=== PATIENT | female | born 1940 | race African-American/Black ===

== ENCOUNTER 2017-03-11 20:54 | Inpatient (IN) | payer OTHER ==
[~2017-03-11] VITALS: Ht 162.6 cm; Wt 93.6 kg
--- NOTE | ~2017-03-11 | HC ---
[facility] [place] [address] CONSULTATION Name: SHRAVANEULALIA Basim Room #: 210-[facility] IN ..#: [id number] Admission: 03/12/17 Attend Phys: Joel Moreno MD Discharge: Date of : 42 Report #: [id number] THIS REPORT FOR: //name// CC: Joel Moreno DATE OF SERVICE: 03/22/2017 HISTORY OF PRESENT ILLNESS: The patient is a 76-year-old -[place] female originally admitted with abdominal pain, was noted to have an obstructing mid transverse colonic mass and underwent colectomy on 03/18/2017. Course has been complicated by acute renal insufficiency, which has improved. Nephrology is involved. Weight is increased and she is on Lasix. She has generalized weakness and debilitation and we are seeing her in rehabilitation medicine consultation. The colonoscopy and pathology is consistent with invasive adenocarcinoma with the surgical pathology currently pending. PAST MEDICAL HISTORY: Includes hypertension, hyperlipidemia, and degenerative arthritis. ALLERGIES: PENICILLIN. MEDICATIONS: Please see the full medication listing. FAMILY HISTORY: Noncontributory. SOCIAL HISTORY: She lives in a house with her granddaughter, 2 steps in. No assistive device premorbidly. Daughter is a nurse. REVIEW OF SYSTEMS: Some abdominal discomfort as expected, but no chest pain or shortness of breath. She does have pain involving the right foot and she indicates that she has a history of gout. PHYSICAL EXAMINATION: GENERAL: A pleasant 76-year-old -[place] female, in no obvious distress. She is alert, pleasant, and overweight. VITAL SIGNS: Last recorded temperature 98.3, pulse 80, respirations 20, and blood pressure 179/86. NEUROLOGIC: Facies are symmetric. Functional range of motion of both upper extremities with strength grade 4-/5. DTRs are trace to 1 in lower extremities. She has the abdominal binder in place. She has the lower abdominal drain. Lower extremity, she favors moving the right lower extremity with pain involving the right foot and large toe. Proximally, her strength is probably a grade 4-/5 distally. Again, it somewhat difficult with the discomfort. Left lower extremity, functional range of motion, strength is a grade 4- Tone is intact. Bed mobility was max assist with sit to stand, mod assist. [facility] [address] [place] [address] CONSULTATION Name: EULALIA CHENEY Room #: [facility] IN .R.#: [id number] Admission: 03/12/17 Attend Phys: Joel Moreno MD Discharge: Date of : 42 Report #: [id number] ASSESSMENT: A 76-year-old -[place] female with the following problem list: 1. Obstructing colonic mass, now status post colectomy on 03/18/2017. Colonoscopy and pathology is consistent with invasive adenocarcinoma. 2. Acute renal insufficiency that has improved. 3. Right foot discomfort. The patient indicates she has a history of gout. Note that she has been started on allopurinol. 4. Diabetes mellitus. 5. Hypertension. 6. Elevated lipids. 7. Degenerative arthritis. 8. Exogenous obesity. PLAN: Insurance will be checked regarding rehab therapy options. She certainly would be a candidate for a short acute in-hospital inpatient rehabilitation stay to further improve her strength, functional mobility, and ADLs as well as to allow her current physician consultants to continue to follow with her while she is on the rehab javier. Insurance will need to be checked and we will also have to check regarding bed availability issues. We will be glad to follow along with you. <ELECTRONICALLY SIGNED> By: Joel Sage MD 03/28/17 1226 1529 0042 Joel Sage MD /PMT
--- NOTE | ~2017-03-11 | HC ---
[facility] [place] [address] CONSULTATION Name: SHRAVANEULALIA Room #: 210-[facility] IN M.R.#: [id number] Admission: 03/12/17 Attend Phys: Joel Moreno MD Discharge: Date of : 42 Report #: [id number] THIS REPORT FOR: //name// CC: Joel Moreno REASON FOR CONSULTATION: Elevated creatinine. HISTORY OF PRESENT ILLNESS: A 76-year-old who was admitted earlier this month with intermittent abdominal pain. This had been running with her for a few months and she reported to some weight loss. She is not known to have any previous renal problems. She presented for further evaluation and management. CT of the abdomen showed an ascending and transverse colon, fluid and gas distention with what seems to be a hepatic flexure mass. That was evident on a colonoscopy that was done by the GI team, which revealed a circumferential colon, strictures at the hepatic flexure as well as well as sigmoid diverticulosis and rectal polyps. The patient was operated upon. She had a normal kidney function before her surgical intervention. She ran into some issues with hypotension postoperatively and her creatinine has jumped to 2.2 from a baseline of around 1.0 on presentation. She is not aware of any previous kidney problems prior to this. PAST MEDICAL HISTORY: 1. Diabetes mellitus. 2. Hypertension. 3. Hyperlipidemia. 4. Gout. PAST SURGICAL HISTORY: Bilateral tubal ligation, sinus surgery and carpal tunnel. MEDICATIONS: Hydrocodone, promethazine, ciprofloxacin, metronidazole, potassium. Listed in her outpatient medication is metformin and losartan. ALLERGIES: PENICILLIN. FAMILY HISTORY: The patient's paternal grandfather had stomach cancer. SOCIAL HISTORY: No drug or alcohol abuse. REVIEW OF SYSTEMS: GENERAL: Weight loss. PULMONARY: No cough or hemoptysis. CARDIOVASCULAR: No chest pain or palpitation. GASTROINTESTINAL: As per the history of present illness. GENITOURINARY: No frequency, no urgency. MUSCULOSKELETAL: No myalgias, no arthralgias. NEUROLOGICAL: No headache, no numbness. [facility] [address] [place] [address] CONSULTATION Name: EULALIA CHENEY Room #: [address] [place] [address]#: [id number] Admission: 03/12/17 Attend Phys: Joel Moreno MD Discharge: Date of : 42 Report #: [id number] PHYSICAL EXAMINATION: GENERAL: She is alert, oriented. NG tube in place. VITAL SIGNS: Blood pressure is 106/53, respiratory rate is 19, temperature 37.1. HEAD AND NECK: No jugular venous distention, no bruit, no thyromegaly. CHEST: Clear to auscultation bilaterally. CARDIOVASCULAR: Regular with no rub detected. ABDOMEN: Soft, nontender with no hepatosplenomegaly. LOWER EXTREMITIES: No edema. LABORATORY VALUES: Reviewed. Most recent creatinine is actually down to 1.5, potassium is 3.3. IMAGING: Chest x-ray reviewed. There is no evidence of pulmonary edema. ASSESSMENT, IMPRESSION AND PLAN: 1. Acute kidney injury. 2. Hypovolemia. 3. Status post colonic resection with hepatic mass, pending pathology. 4. Hypertension. 5. Diabetes mellitus. 6. Hypokalemia. 7. Acute kidney injury is well explained by her hypovolemia post-surgical intervention. 8. As for now, we will continue with the IV fluid. 9. Strict input and output. 10. Replace potassium. 11. Expect her kidney function to fully recover. 12. Routine antibiotics. 13. Replace electrolytes. 14. Pending pathology. <ELECTRONICALLY SIGNED> By: Geovanny Tyson MD 03/21/17 0832 2 51 Geovanny Tyson MD /nt
--- NOTE | ~2017-03-11 | S ---
[facility] [place] [address] SURGICAL PATH RPT PROCEDURE Name: BESSY ADAMS Room #: 210-P ADM IN M.R.#: [id number] Admission: 03/12/17 Date of : 44 Discharge: Report #: [id number] Path Case #: [id number] PATHOLOGY REPORT COLLECTION DATE: 03/15/2017 RECEIVED DATE: 03/15/2017 SUBMITTING PHYS: Dr. Tobni Restrepo OTHER PHYS: Dr. Joel Moreno SPECIMEN(S) RECEIVED: A.Antrum B.Distal esophagus C.Right colon stricture D.Rectal polyp * * * * * * * * * * * * FINAL DIAGNOSIS: A. "Antrum", biopsy: - Gastric antral type mucosa with mild reactive changes and mild chronic inflammation. - Negative H. pylori immunohistochemical stain (block A1); control reacted appropriately. B. "Distal esophagus", biopsy: - Esophageal squamous mucosa and gastric cardiac type mucosa with reactive changes and acute and chronic inflammation; no intestinal metaplasia or dysplasia seen. C. "Right colon stricture", biopsy: - INVASIVE ADENOCARCINOMA, MODERATELY DIFFERENTIATED, WITH BACKGROUND TUBULAR ADENOMA WITH HIGH-GRADE DYSPLASIA AND ACUTE AND CHRONIC INFLAMMATION, ULCERATION AND GRANULATION TISSUE. D. "Rectal polyp", biopsy: - Hyperplastic polyp with underlying submucosal leiomyoma (see comment). COMMENT: Properly controlled immunohistochemical stains are performed on specimen D. Block D1 SMA - Spindled cells reactive S100 - Spindled cells nonreactive CD117 - Spindled cells nonreactive CD34 - Spindled cells nonreactive Within specimen C, deeper sections are performed. The case is co-reviewed with Dr. Lacie Meeks. Due to the small focus of invasive tumor, MSI testing will be performed on the colon resection ([id number]). (CLW:kim; 03/17/2017) [address] [address] SURGICAL PATH RPT PROCEDURE Name: BESSY ADAMS Room #: 210-P [facility] IN M.R.#: [id number] Admission: 03/12/17 Date of : 42 Discharge: Report #: [id number] Path Case #: [id number] PATHOLOGIST: Sophia Jimenez M.D. REPORT ELECTRONICALLY SIGNED BY: Sophia Jimenez M.D. DATE/TIME: 03/17/2017 21:04 * * * * * * * * * * * * GROSS PATHOLOGY: A. Received in formalin labeled "Bessy Adams, BX antrum, rule out H. pylori," is a segment of tejeda soft tissue measuring 0.5 cm in maximum dimension. The specimen is submitted entirely in cassette A1. B. Received in formalin labeled "Bessy Adams BX of distal esophagus, rule out Baptiste's," are 4 segments of tejeda soft tissue measuring 1.6 x 0.8 x 0.2 cm in aggregate dimensions and ranging from 0.3 to 0.6 cm in maximum dimension. The specimen is submitted entirely in cassette B1. C. Received in formalin labeled "Bessy Adams BX of right colon stricture," are 7 segments of tejeda soft tissue measuring 1.5 x 1.8 x 0.2 cm in aggregate dimensions and ranging from 0.2 to 0.4 cm in maximum dimension. The specimen is submitted entirely in cassette C1. D. Received in formalin labeled "Bessy Adams, polyp at rectum," is a 0.8 x 0.5 x 0.5 cm polypoid piece of tejeda soft tissue. The margin is inked and the tissue is sectioned perpendicular to the margin and submitted in its entirety in cassette D1. (TSD; 03/15/2017) CLINICAL HISTORY: Pre-OP DX: Dysphagia, abdominal pain Post-OP DX: Hiatal hernia, esophagitis, gastritis, dysphagia, hepatic flexure mass INITIAL CPT CODE(S): A; 39295, 25810 B; 14814 C; 17372 D; 82852, 83017, 62458, 85668, 91849 Professional services performed by [facility] at [facility] [address] [facility], [place] [address] Technical services performed by [facility] at [address] [place] [address], [address] [address]. [facility] [address] [place] [address] SURGICAL PATH RPT PROCEDURE Name: BESSY ADAMS Room #: 210-P [facility] IN M.R.#: [id number] Admission: 03/12/17 Date of : 42 Discharge: Report #: [id number] Path Case #: [id number] [place] [address] PHONE: [phone] DIRECTOR: Terence Bansal M.D. * * * END OF REPORT * * *
--- NOTE | ~2017-03-11 | O ---
[facility] [place] [address] OPERATIVE REPORT Name: SHRAVANEULALIA Room #: 210-P [facility] IN M.R.#: [id number] Admission: 03/12/17 Attend Phys: Joel Moreno MD Discharge: Date of : 42 Report #: [id number] THIS REPORT FOR: //name// CC: Srinivasa Restrepo MD SURGEON: Srinivasa White M.D. INSPECTOR ASSEMBLY: Siva Soriano D.O. PREOPERATIVE DIAGNOSES: 1. Obstructing hepatic flexure mass. 2. Diabetes mellitus. 3. Hypertension. 4. Arthritis. 5. Gout. POSTOPERATIVE DIAGNOSES: 1. Obstructing mid transverse colon mass. 2. Diabetes mellitus. 3. Hypertension. 4. Arthritis. 5. Gout. PROCEDURE: 1. Laparoscopic converted to open transverse colectomy with thaf-hr-gtxp stapled anastomosis. 2. Mobilization of the hepatic flexure. 3. Placement of topical negative pressure dressing (CRISTOPHER). ANESTHESIA: General endotracheal anesthesia and local anesthetic. ESTIMATED BLOOD LOSS: 50 mL. SPECIMEN: Peritoneal fluid, transverse colon, anastomosis. COMPLICATIONS: None appreciated. INDICATIONS FOR PROCEDURE: This is a 76-year-old female patient with a 1-year history of intermittent abdominal pain associated with constipation. Over the past few months, the patient has noticed a 15-20 pound weight loss unintentionally. Her pain has substantially increased over the past 2 weeks. She was seen in the [facility] where she underwent CT of the abdomen and pelvis showing ascending and transverse colon fluid and gas distention with pericolonic fat stranding and wall thickening. Her maximal colon diameter was 7 cm with a 6 mm thick wall. This was felt to represent [facility] [address] [place] [address] OPERATIVE REPORT Name: EULALIA CHENEY Room #: 210-P [facility] IN ..#: [id number] Admission: 03/12/17 Attend Phys: Joel Moreno MD Discharge: Date of : 42 Report #: [id number] colitis. Her white blood cell count was mildly elevated at the time of her admission. The patient reports never having had a colonoscopy in the past (records show no colonoscopy within the past 10 years). GI performed an upper and lower endoscopy. She was found to have a circumferential stricture felt to be located at the hepatic flexure as well as sigmoid diverticulosis. The strictured area was highly suspicious for malignancy. Due to the patient's symptomatology, resection is indicated. OPERATIVE FINDINGS: Upon entrance into the abdominal cavity laparoscopically, the patient's small bowel was significantly dilated, as well as her transverse colon. Omentum was adherent both in the right lower quadrant and left lower quadrant and after taking down these adhesions and appropriately positioning the patient, I was unable to identify the tattooed area. This was mostly due to the distended bowel that made the laparoscopic approach quite difficult. Decision was made to convert to an open procedure. After opening the patient, I was able to palpate a mass in the mid transverse colon. The tattoo was visible in this area. There was a somewhat desmoplastic reaction with omentum tightly adherent to the area. There was no evidence for carcinomatosis otherwise with no omental caking and there were no palpable liver masses. The mesentery was also palpated for gross lymphadenopathy and this was not appreciated. I resected colon that involved the middle colic and left colic arterial distribution. After creating the stapled bizx-xl-utfs functional end-to-end anastomosis with a blue load 75 mm YARIEL stapler, the anastomosis was without tension. This required mobilization of the hepatic flexure prior to performing the anastomosis. The anastomosis was palpably patent after its creation. No other significant intra-abdominal pathology was seen. At the conclusion of the operation, the sponge, needle, and instrument counts were correct. DESCRIPTION OF PROCEDURE IN DETAIL: After the risks, benefits and expectations, the operation were discussed in detail with the patient and her family, informed consent was obtained. The patient was identified in the preoperative holding area. She was given IV antibiotics as documented in the chart in line with SCIP metrics. The patient was then taken to the operating room and she was placed in the supine position. SCDs were placed on the patient's bilateral lower extremities and pneumatic compression was initiated. The patient was then given IV sedation and she was intubated without incident. A time-out was performed to identify the correct patient and procedure after the patient's abdomen was prepped and draped in standard sterile fashion. Local anesthetic was infiltrated into the skin and subcutaneous tissue supraumbilically where a vertical incision was made. Dissection was carried down to the fascia. A longitudinal fascial incision was made. A 5 mm Visiport was then placed intraperitoneally with a 0-degree angled laparoscope. Pneumoperitoneum was achieved with insufflation of carbon dioxide to 15 mmHg. A 30-degree angled laparoscope was then inserted. The patient was placed in the [address] [address] OPERATIVE REPORT Name: EULALIA CHENEY Room #: 210-P ADM IN M.R.#: [id number] Admission: 03/12/17 Attend Phys: Joel Moreno MD Discharge: Date of : 42 Report #: [id number] Trendelenburg position. A suprapubic 5-mm port was placed through a vertical incision after local anesthetic was infiltrated into the skin and subcutaneous tissue and an appropriately sized incision was made. An additional 5-mm port was placed in the left lower quadrant of the abdomen using a similar technique through a small transverse incision. The patient was then rotated to her left, with the right side up. The distended bowel was retracted away and visualization was quite difficult. Omentum was adherent in the right lower quadrant. This was carefully taken down with sharp dissection and judicious use of the ultrasonic dissector. The omentum had been adherent to the cecum. The appendix appeared normal. The omentum was adherent in the right upper quadrant near the hepatic flexure and this was initially felt to potentially represent the area of involvement; however, the tattoo was not visible. The transverse colon was distended and hyperemic. I searched for the tattooed area in the mid transverse colon; however, this was quite difficult once again due to the distended bowel that made visualization difficult. Omentum in the left lower quadrant of the abdomen was dissected free in a similar fashion in order to lift the omentum. Visualization of the tattooed area was still not possible. Decision was made to perform the operation through a midline laparotomy. The ports were removed. A sharp #10 blade scalpel was then used to make a vertical midline incision from the xiphoid inferiorly to the umbilicus. Dissection was carried through the subcutaneous tissue down to the fascia. The fascia and peritoneal lining were then opened along the length of the incision. It was evident that a longer incision would be necessary to perform the operation. The incision was carried around the umbilicus on the right. The fascia and peritoneum were opened along the length of the incision. The tumor was palpable in the mid transverse colon. The peritoneal fluid was suctioned and collected with a Lukens trap. There was no evidence for carcinomatosis, liver involvement or omental caking. The lesser sac was then opened and the dissection was carried laterally on both sides. The colonic mesentery was palpated for the middle colic artery and left colic distribution. Decision was made to perform a transverse colon resection following oncologic principles of blood supply. The colon was divided proximal to the middle colic artery and just distal to the left colic distribution. Mesenteric windows were created and the colon was divided in each area with a blue load 75 mm YARIEL stapler. The middle colic artery was then transected near its origin with the Ethicon EnSeal device with good hemostasis. The remainder of the mesentery was divided using this device as well. At least 12 cm margins were present on either side of the tumor. In order to create a stapled ipqa-lf-ubfw functional end-to-end tension-free anastomosis, takedown of the hepatic flexure was necessary. Dissection was carried along the white line of Toldt and hepatic flexure to free the flexure enough to free the colon enough to create the anastomosis. The antimesenteric corners of the colon were aligned and a 3-0 PDS suture was placed. The antimesenteric staple lines were [address] [address] OPERATIVE REPORT Name: EULALIA CHENEY Room #: 210-P [facility] IN ..#: [id number] Admission: 03/12/17 Attend Phys: Joel Moreno MD Discharge: Date of : 42 Report #: [id number] then excised and each limb of the blue load 75 mm YARIEL stapler was passed down each limb of the colon. The stapler was then fired and the common colotomy was approximated with Allis clamps. A 60 mm TX blue load stapler was then used to staple off the common colotomy. The excess tissue was excised and sent for specimen. The transverse colon had been sent for specimen with a suture marking the distal staple line. A 3-0 PDS anti-tension suture was placed at the crotch of the anastomosis. The colonic mesentery was closed with a running 3-0 PDS suture to prevent internal hernia. The common colotomy staple line was oversewn with interrupted 3-0 PDS Lembert sutures. The anastomosis was palpably patent and no tension was present on the anastomosis. The abdominal cavity was then copiously irrigated and suctioned and return of all drainage ran clear. 5 liters of warm normal saline was used to irrigate the abdominal cavity. A 19-Cymraes Antony drain was then placed within the abdominal cavity and brought out through the left lower quadrant, incision used for the port. The drain was secured to the skin with a 2-0 nylon suture. Intraabdominally, the drain was positioned along the left pericolic gutter up to the root of the mesentery near the anastomosis. Interceed was then placed over the bowel. After ensuring that the sponge, needle and instrument counts were correct, the midline abdominal wall fascia was closed with a running looped #1 PDS suture. The wound was irrigated and skin was stapled for closure. The skin was then cleansed and dried. The CRISTOPHER dressing was applied with a good seal. The patient tolerated the procedure well. She was awakened, extubated, and taken to recovery room in stable condition with no apparent intraoperative complications. <ELECTRONICALLY SIGNED> By: Srinivasa White MD, FACS 03/20/17 0856 1645 1753 Srinivasa White MD, FACS /nt
--- NOTE | ~2017-03-11 | CNG ---
[facility] [place] [address] CYTO-NONGYN REPORT PROCEDURE Name: EULALIA CHENEY Room #: 210-P ADM IN M.R.#: [id number] Admission: 03/12/17 Date of : 44 Discharge: Report #: [id number] Path Case #: [id number] CYTOPATHOLOGY REPORT COLLECTION DATE: 03/16/2017 RECEIVED DATE: 03/16/2017 SUBMITTING PHYS: Dr. Joel Moreno OTHER PHYS: CLINICAL HISTORY: Colitis, hypokalemia; See also [id number]. SPECIMEN(S) RECEIVED: A.Peritoneal fluid * * * * * * * * * * * * FINAL DIAGNOSIS: Peritoneal fluid: - No definitive malignant epithelial cells identified. Reactive mesothelial cells along with numerous macrophages and inflammatory cells. COMMENT: Immunohistochemical stains are performed on the cell block. Calretinin reactive within the mesothelial cells CD68 reactive within the macrophages CD45 reactive within the chronic inflammatory cells CDX2- nonreactive B72.3 nonreactive [place]: Dr. Sophia Jimenez. (IUV:rlm; 03/17/2017) PATHOLOGIST: Lacie Meeks M.D. REPORT ELECTRONICALLY SIGNED BY: Lacie Meeks M.D. DATE/TIME: 03/18/2017 10:29 * * * * * * * * * * * * GROSS PATHOLOGY: Peritoneal fluid: The specimen is submitted unfixed, labeled "Bryan Doherty". Received by the Cytology Department is 40 mL of cloudy orange fluid. One ThinPrep slide and a formalin fixed cell block were prepared. ([id number]) INSPECTOR HANDBAG FRAMES(S): [facility] Calix[facility]IAC INITIAL CPT CODE(S): A; 22517, 72717, 13352, 87667, 88351, 55427, 78407 Professional services performed by [facility] at [facility] [address] [place] [address] CYTO-NONGYN REPORT PROCEDURE Name: EULALIA CHENEY Room #: 210-P [facility] IN .R.#: [id number] Admission: 03/12/17 Date of : 44 Discharge: Report #: [id number] Path Case #: [id number] [address], [place] [address] Technical services performed by [facility] at [address] [place] [address], [address], [place] [address]. [address], [address] [place] [address] PHONE: [phone] DIRECTOR: Terence Bansal M.D. * * * END OF REPORT * * *
--- NOTE | ~2017-03-11 | H ---
[facility] [place] [address] HISTORY AND PHYSICAL Name: SHRAVANEULALIA Basim Room #: 210-P [facility] IN .R.#: [id number] Admission: 03/12/17 Attend Phys: Joel Moreno MD Discharge: 03/29/17 Date of : 44 Report #: [id number] THIS REPORT FOR: //name// CC: Joel Moreno DATE OF SERVICE: 03/12/2017 CHIEF COMPLAINT: This is a 76-year-old female with abdominal pain. HISTORY OF PRESENT ILLNESS: This is a patient, who is well-known to our service, who has been doing well up until a few weeks ago when she had progressive uncomfortableness in her abdomen. Apparently, she was seen in the office. Workup was begun, but the pain persisted. She has been having also some constipation issues, may be some bleeding. Denies any fevers, chills, or sweats. She then presented to the emergency room where CT imaging confirms colitis. PAST MEDICAL HISTORY: Significant for hyperlipidemia, diabetes, and degenerative arthritis. She has hypertension as well. ALLERGIES: SHE IS ALLERGIC TO PENICILLIN. MEDICATIONS: Her medication list includes potassium chloride, hydrocodone, metoprolol tartrate, amlodipine, Avapro, aspirin, hydrochlorothiazide, metformin, vitamin D3, and allopurinol. FAMILY HISTORY: Noncontributory. SOCIAL HISTORY: She does not smoke or drink and really has full control of her activities of daily living. REVIEW OF SYSTEMS: Otherwise, negative other than her abdominal complaints. PHYSICAL EXAMINATION: GENERAL: Shows her to be in no distress. She is awake and alert. At this time, she was sleeping when I walked in the room. Her daughter is at the bedside. VITAL SIGNS: Stable. HEENT: Negative. NECK: Supple without thyromegaly or adenopathy. CHEST: Clear. CARDIOVASCULAR: Shows a regular rate and rhythm without murmur. ABDOMEN: Showed her to be nondistended, really nontender. Bowel sounds were present. EXTREMITIES: No cyanosis, clubbing, or edema. NEUROLOGIC: Showed nothing focal. [facility] [address] [place] [address] HISTORY AND PHYSICAL Name: EULALIA CHENEY Room #: [address] [place] [address] IN ..#: [id number] Admission: 03/12/17 Attend Phys: Joel Moreno MD Discharge: 03/29/17 Date of : 44 Report #: [id number] ASSESSMENT AND PLAN: This is a patient with colitis and considerations for inflammation versus ischemia versus infection are all possibilities. We are going to have a clear liquid diet and GI evaluation to consider endoscopy. Broad-spectrum antibiotics at this time to include metronidazole and Cipro. Full code status remains. Comorbid conditions of hypertension and diabetes are stable. <ELECTRONICALLY SIGNED> By: Siva Ervin MD 05/19/17 1612 1058 1118 Siva Ervin MD /nt
--- NOTE | ~2017-03-11 | S ---
[facility] [place] [address] SURGICAL PATH RPT PROCEDURE Name: BESSY ADAMS Room #: 210-P DIS IN M.R.#: [id number] Admission: 03/12/17 Date of : 44 Discharge: 03/29/17 Report #: [id number] Path Case #: [id number] PATHOLOGY REPORT COLLECTION DATE: 03/16/2017 RECEIVED DATE: 03/16/2017 SUBMITTING PHYS: Dr. Srinivasa White OTHER PHYS: Dr. iSva Soriano, DO Dr. Joel Moreno ADDENDUM REPORT (Order Date: 03/23/2017 11:56) ADDENDUM DIAGNOSIS: Omentum, omentectomy: - 22.5 cm of omentum showing marked congestion, mild chronic inflammation as well as reactive changes. - Negative for malignancy. ADDENDUM COMMENT: Addendum is issued subsequent to reviewing additional sections of the "omentum". (IUV:mml; 03/23/2017) ELECTRONICALLY SIGNED BY: Lacie Meeks M.D. DATE/TIME:03/23/2017 13:26 SPECIMEN(S) RECEIVED: A.Transverse colon B.Anastomosis * * * * * * * * * * * * FINAL DIAGNOSIS: A. 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 - Margins of resection free of malignancy. - ONE TUMOR DEPOSIT IDENTIFIED (INTRAMURAL). - TWO LYMPH NODES WITH METASTATIC ADENOCARCINOMA OF SEVENTEEN SAMPLED (2/17). B. Large intestine, anastomosis: - No diagnostic abnormalities present. SYNOPTIC CANCER STAGING REPORT SPECIMEN Specimen: Transverse colon Procedure: Transverse colectomy Macroscopic Intactness of Mesorectum: Not applicable [facility] [address] [place] [address] SURGICAL PATH RPT PROCEDURE Name: BESSY ADAMS Room #: 210-P [facility]#: [id number] Admission: 03/12/17 Date of : 44 Discharge: 03/29/17 Report #: [id number] Path Case #: [id number] TUMOR Primary Tumor Site: Transverse colon Histologic Type: Adenocarcinoma Histologic Grade: Low-grade (well differentiated to moderately differentiated) Tumor Size: Greatest dimension (cm): 2.6 Tumor Deposits: Present Number of Deposits: Specify: 1 Tumor Extent Site(s) of Direct Extent of Tumor: Transverse colon Microscopic Tumor Extension: Tumor invades through the muscularis propria into the subserosal adipose tissue or the nonperitonealized pericolic or perirectal soft tissues but does not extend to the serosal surface Macroscopic Tumor Perforation: Not Identified Accessory Tumor Findings Lymph-Vascular Invasion: Present Perineural Invasion: Not identified Type of Polyp in Which Invasive Carcinoma Arose: Tubular adenoma MARGINS All margins uninvolved by invasive carcinoma Distance of Invasive Carcinoma from Closest Margin: Specify (cm): 8.0 Specify Margin: Proximal For Resection Specimens Only Proximal Margin: Uninvolved by invasive carcinoma Distal Margin: Uninvolved by invasive carcinoma Circumferential (Radial) Margin: Not applicable Mesenteric Margin: Uninvolved by invasive carcinoma LYMPH NODES Regional Lymph Nodes: Number of Lymph Nodes Examined: At least: 17 Number of Lymph Nodes Involved: Specify number: 2 STAGE (PTNM) Primary Tumor (pT): pT3: Tumor invades through the muscularis propria into pericolorectal tissues Regional Lymph Nodes (pN): pN1b: Metastasis in 2 to 3 regional lymph nodes COMMENT: Co-review: Dr. Sophia Jimenez Per [facility] Cancer Committee Protocol, mismatch repair (MMR) protein [address] [address] SURGICAL PATH RPT PROCEDURE Name: BESSY ADAMS Room #: 210-P [facility] IN ..#: [id number] Admission: 03/12/17 Date of : 44 Discharge: 03/29/17 Report #: [id number] Path Case #: [id number] immunohistochemical staining was performed on block A4. Reason for testing: To evaluate for evidence of defective mismatch repair proteins. Method: Immunohistochemical staining for the presence or absence of protein expression of one or more of the following MMR protein markers: MLH1, MSH2, MSH6 and PMS2. Tumor type: Invasive adenocarcinoma Results: MLH1 - Preserved MSH2 - Preserved MSH6 - Preserved PMS2 - Preserved Mismatch Repair Status: MMR Proficient (MMR-P) Interpretation: (MMR-P) All four MMR proteins are preserved within tumor cells. This suggests the presence of normal DNA mismatch repair function within the tumor and an observable defect in mismatch repair is not identified. The likelihood that this patient has an inherited germline mutation syndrome due to defective mismatch repair is reduced but not totally eliminated. If the patient has a strong personal or family history of HPNCC/Hubbard syndrome related cancers (colorectal, endometrial, gastric, ovarian, pancreatic, ureter/renal pelvis, biliary tract, brain, small bowel and Marko-Aftab syndrome), consider MSI testing by PCR methodology. Suggest clinical correlation and follow up. These test results are designed for screening purposes only and are useful tools in identifying cancer patients that are more likely to have Hubbard Syndrome related diagnoses. Tests should be interpreted in the context of clinical findings, family history and laboratory data. Abnormal IHC results for MMR protein expression are not considered diagnostic for Hubbard Syndrome. (IUV:mgr; 03/21/2017) Professional services performed under supervision of [facility] [employer] at [address], [place] [address] Technical services performed by [facility] under supervision of a [facility] at [address] [place] [address], [address] [address]. PATHOLOGIST: Lacie Meeks M.D. REPORT ELECTRONICALLY SIGNED BY: Lacie Meeks M.D. DATE/TIME: 03/21/2017 15:48 * * * * * * * * * * * * GROSS PATHOLOGY: [facility] [address] [place] [address] SURGICAL PATH RPT PROCEDURE Name: BESSY ADAMS Room #: 210-P [facility] IN M.R.#: [id number] Admission: 03/12/17 Date of : 44 Discharge: 03/29/17 Report #: [id number] Path Case #: [id number] A. The specimen is received in formalin, labeled "Bessy Adams, transverse colon suture at distal end," and consists of an oriented and previously opened segment of colon measuring 25.7 cm in length and 4.5 cm in diameter. Both margins are stapled. A suture at one stapled margin designates distal. The serosal surface is vides-tejeda with a focal area of dark brown-black discoloration measuring 1.5 cm. The attached omentum is 22.0 cm. Grossly, no tumor masses are identified. The attached pericolic fat measures up to 8.3 cm. The mucosa is pink-tejeda with a fungating and polypoid mass measuring 2.6 x 2.0 cm which is located at the site of serosal discoloration. The mass is 15.0 cm from the distal margin and 8.0 cm from the proximal margin. Sectioning shows the mass invading through the muscularis propria, and extends to within 0.5 cm of the black inked serosal surface. Also present is diverticulum near the mass ranging up to 1.0 cm in greatest dimension. The remainder of the colonic mucosa is pink-tejeda and displays its normal architectural folds with no additional diverticula. No additional masses or lesions identified. The fat is placed in clearing solution revealing multiple lymph node candidates. Found[employer] Work[employer] General sections are submitted as follows: A1: Distal resection margin, en face A2: Anterior resection margin, en face A3-A6: Mass, blue ink applied to prior cut A7: Uninvolved colon A8: Additional tumor section within the diverticula A9-A10: Lymph node candidates After initial microscopic examination additional lymph node candidates are submitted in cassette A11. (SDY; 03/18/2017) B. The specimen is received in formalin, labeled "Bessy Adams, anastomosis," and consists of a segment of brown-tejeda mucosa measuring 3.7 x 1.5 x 0.7 cm. 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 (SDY; 03/17/2017) CLINICAL HISTORY: Colon mass INITIAL CPT CODE(S): A; 83227, 58940, 42946, 52131, 74733, 24250, 23644, 95789, 84588, 35660(2), 99110, 80831 <CR>, 30559 <CR>, 54425 <CR>, 54151(2) <CR>, 57862 <CR> B; 22497 Professional services performed by [facility] at [address] [place] [address] Technical services performed by [facility] at [address] [place] [id number] SURGICAL PATH RPT PROCEDURE Name: BESSY ADAMS Room #: 210-P [facility]#: [id number] Admission: 03/12/17 Date of : 44 Discharge: 03/29/17 Report #: [id number] Path Case #: [id number] [place] [id number]. Kulwant Dash PROCEDURE REPORT (Order Date: 05/27/2017 00:00) COMMENT: The slides were marked for testing, and sent at the request of Dr. Deonte Soto. PD-L1 testing was performed by [facility] on block A1. Please see SCANNED IMAGES under LABORATORY for separate report of results. (IUV:amj; d/t: 06/02/2017) PATHOLOGIST: Lacie Meeks M.D. REPORT ELECTRONICALLY SIGNED BY: Lacie Meeks M.D. DATE/TIME: 06/03/2017 09:[address] [facility] [address] [place] [id number] PHONE: [phone] DIRECTOR: Terence Bansal M.D. * * * END OF REPORT * * *
--- NOTE | ~2017-03-11 | HC ---
[facility] [place] [address] CONSULTATION Name: SHRAVANEULALIA Room #: 210-P ADM IN M.R.#: [id number] Admission: 03/12/17 Attend Phys: Joel Moreno MD Discharge: Date of : 42 Report #: [id number] THIS REPORT FOR: //name// CC: Joel Restrepo MD DATE OF SERVICE: 03/15/2017 REASON FOR CONSULTATION: Circumferential hepatic flexure mass/stricture. HISTORY OF PRESENT ILLNESS: This is a 76-year-old -[place]izen [place] female patient, who reports a 1-year history of intermittent abdominal pain in her lower abdomen associated with constipation. She did not seek medical care for this until recently. Over the past 3-4 months, she notes a 15-20 pound weight loss. She recently started seeing Dr. Joel Moreno as her primary care physician, but reports not being seen for abdominal pain. She denies bright red blood per rectum. Due to her increased pain, frequency and intensity, she was seen in the [place] [facility]. She notes worsening of her symptoms over the past [address] of the abdomen and pelvis showed ascending and transverse colon fluid and gas distention with pericolonic fat stranding and wall thickening with a maximal colon diameter of 7 cm and a 6 mm thick colon wall. This was felt to represent colitis. Her initial white blood cell count was 11.6 when she was admitted on 03/11/2017. She reports never having had a colonoscopy in the past. She was seen by GI and she was placed on IV antibiotics and pain medications. She underwent upper and lower endoscopy today, which revealed esophagitis, small hiatal hernia and mild gastritis on the EGD. Her colonoscopy showed a circumferential colon stricture at the hepatic flexure as well as sigmoid diverticulosis, a rectal polyp and internal hemorrhoids. The strictured area was highly suspicious for malignancy. I have been asked to see the patient for further evaluation and treatment. PAST MEDICAL HISTORY: Significant for hypertension, diabetes mellitus and gout. PAST SURGICAL HISTORY: Includes bilateral tubal ligation, sinus surgery, and bilateral carpal tunnel release. MEDICATIONS: Please see the hospital chart for details. CURRENT MEDICATIONS: Include pantoprazole, hydrocodone, promethazine, ciprofloxacin, metronidazole, potassium chloride, magnesium oxide, and p.r.n. medications. ALLERGIES: PENICILLIN CAUSES PRURITUS. FAMILY HISTORY: The patient's paternal grandfather of "stomach cancer;" however, the patient is uncertain whether he actually had colon cancer. Her [facility] [address] [place] [address] CONSULTATION Name: EULALIA CHENEY Room #: 210-P [facility] IN [facility]#: [id number] Admission: 03/12/17 Attend Phys: Joel Moreno MD Discharge: Date of : 42 Report #: [id number] father of prostate cancer. SOCIAL HISTORY: The patient denies use of tobacco, alcohol or illicit drugs. She is accompanied by multiple family members. REVIEW OF SYSTEMS: As per history of present illness, in addition, GENERAL: The patient reports unintentional weight loss of 15-20 pounds over the past few months. She denies fever or chills. HEENT: Denies changes in taste, vision, hearing, or smell. RESPIRATORY: Denies shortness of breath, COPD or asthma. CARDIOVASCULAR: Denies chest pain or palpitations. She has been seen by Dr. Bertram Saxena with the Cardiology Service. GASTROINTESTINAL: As per history of present illness. Denies bright red blood per rectum. Reports never having had a colonoscopy, although she reported a normal colonoscopy more than [address] Restrepo. GENITOURINARY: Denies dysuria, urgency or increased urinary frequency. Denies hematuria. MUSCULOSKELETAL: Denies myalgia, arthralgia or arthritis. NEUROLOGIC: Denies headaches, numbness or tingling. PSYCHIATRIC: Denies depression, anxiety or suicidal ideations. SKIN AND INTEGUMENTARY: Denies new skin lesions, rashes, or moles. ENDOCRINE: Denies polydipsia, polyuria, heat or cold intolerance. HEMATOLOGIC: Denies easy bleeding, bruising or anemia. All other review of systems is negative. PHYSICAL EXAMINATION: VITAL SIGNS: Temperature 98.7, blood pressure 111/51, pulse 73 and respirations 18. GENERAL: This is an obese 76-year-old -[place]izen [place] female patient in no acute distress. HEENT: Atraumatic, normocephalic with moist mucosal membranes. Oropharynx is clear. She has no scleral icterus. NECK: Supple. Mild submandibular lymphadenopathy is palpable, but nontender. Trachea is midline. CHEST: Clear bilaterally. No crackles or wheezes. CARDIOVASCULAR: Regular rate and rhythm. ABDOMEN: Obese, soft and slightly distended with tenderness to palpation in the lower abdomen. She has no palpable masses, no appreciable hernias. No rebound or guarding. GENITOURINARY: Normal external female genitalia. EXTREMITIES: No clubbing, cyanosis or edema. NEUROLOGIC: Cranial nerves 2-12 grossly intact. PSYCHIATRIC: Normal mood and affect. SKIN AND INTEGUMENTARY: No acute inflammatory changes, rashes or lesions are present. [address] [address] CONSULTATION Name: EULALIA CHENEY Room #: 210-P [facility] IN .Otf.#: [id number] Admission: 03/12/17 Attend Phys: Joel Moreno MD Discharge: Date of : 42 Report #: [id number] LABORATORY DATA: CBC most recently from 03/13/2017 shows a white blood cell count 10.0, hemoglobin 12.7, hematocrit 38.8 and platelets 207. Her most recent electrolytes show sodium of 143, potassium 3.4, chloride 107, CO2 of 28, BUN 10, creatinine 0.9 and glucose 109. Urinalysis at admission showed trace blood, 2+ leukocyte esterase. Coagulation studies are normal. RADIOLOGIC STUDIES: CT abdomen and pelvis findings are as noted above. Her most recent CT abdomen and pelvis on 03/13/2017 showed proximal colitis with mucosal enhancement, circumferential mural thickening, moderate fluid distention and extensive pericolonic inflammation. This extended from the cecum to just beyond the hepatic flexure with no evidence for perforation or abscess. No mesenteric or retroperitoneal lymphadenopathy was seen. Free fluid was present in the right pericolic gutter extending into the subdiaphragmatic space and pelvis. IMPRESSION AND PLAN: This is a 76-year-old female patient with intermittent abdominal pain, constipation and unintentional weight loss, who has a circumferential mass at the hepatic flexure. In discussion with Dr. Restrepo, he was unable to pass an adult EGD scope beyond the strictured area; however, he was able to tattoo the area. Biopsies were taken and are currently pending. We discussed the differential diagnoses that could cause a stricture at the hepatic flexure, namely malignancy versus ischemia versus colitis secondary to infection. Based on the patient's symptomatology, she would benefit from a resection of the involved colon. We will plan for the laparoscopic approach to start out. We discussed the risks, benefits, and expectations of the operation. The patient is aware that she may require an ostomy as a result of the operation. The patient expressed understanding of the operative plan and agrees to proceed. She will be kept on a clear liquid diet and will undergo enemas until clear tomorrow morning for her planned operation to take place at 8:00 a.m. I sincerely appreciate the opportunity to participate in the care of this patient and will leave further recommendations and orders in the electronic medical record as appropriate. <ELECTRONICALLY SIGNED> By: Srinivasa White MD, FACS 03/16/17 0827 1720 2249 Srinivasa White MD, FACS /nt
--- NOTE | ~2017-03-11 | HC ---
[facility] [place] [address] CONSULTATION Name: SHRAVANEULALIA Room #: 210-P [facility] IN .R.#: [id number] Admission: 03/12/17 Attend Phys: Joel Moreno MD Discharge: Date of : 42 Report #: [id number] THIS REPORT FOR: //name// CC: Joel Moreno DATE OF SERVICE: 03/25/2017 REASON FOR CONSULTATION: I was asked to evaluate the patient concerning postoperative leukocytosis. HISTORY OF PRESENT ILLNESS: The patient is a 76-year-old who was recently diagnosed with colon cancer endoscopically. On 03/16/2017, he was taken for laparotomy with transverse colon tumor resection from a transverse colectomy. Tumor was a moderately differentiated colon adenocarcinoma that was invading the muscularis propria to the subserosa. Two of 17 lymph nodes were involved. She was stage 3. Postoperatively, she has had an ileus and unable to keep food down. She had a white count of 11-15,000. Temperature up to 99 degrees. She had a small amount of liquid stool. TONY drains remain in place. Herzog catheter was removed today. Oxygen saturation remains normal on room air. ALLERGIES: PENICILLIN. Does not know if she tolerates amoxicillin or cephalosporins. MEDICATIONS: As noted on her MAR including ciprofloxacin and metronidazole. She did receive one dose of vancomycin last evening. PAST MEDICAL HISTORY: Diabetes, hypertension, hyperlipidemia, gout, bilateral tubal ligation, sinus surgery, carpal tunnel surgery. FAMILY HISTORY: Noncontributory. SOCIAL HISTORY: Nonsmoker, no significant alcohol intake. REVIEW OF SYSTEMS: Noted above with no additions. PHYSICAL EXAMINATION: VITAL SIGNS: Afebrile and hemodynamically stable. Moderately obese. IV access unremarkable. LUNGS: Decreased breath sounds in the bases bilaterally. HEART: Regular, without murmur. ABDOMEN: Mildly distended. TONY drain with small volume output. It was serosanguineous in color. Incisional vacuum dressing in place with small amount of drainage evident. EXTREMITIES: Unremarkable. LABORATORY STUDIES: Sodium 138, potassium 3.4, bicarbonate 33, creatinine 0.8. [facility] [address] [place] [address] CONSULTATION Name: CHENEYEULALIA Room #: [facility] IN .R.#: [id number] Admission: 03/12/17 Attend Phys: Joel Moreno MD Discharge: Date of : 44 Report #: [id number] Hemoglobin 8.4, white count 11.2, platelet count 248,000. Urinalysis, few WBCs, few bacteria. Urine culture negative to date. Peritoneal cultures negative. Blood and urine cultures are pending. Chest x-ray was clear. C. diff PCR was negative. IMPRESSION: Nine days post transverse colectomy for stage 3 colon cancer, postoperative ileus and mild leukocytosis. I still suspect that abdomen would be most likely source given her ileus. She did have an episode of gouty arthritis that may also be contributing. She is on allopurinol. It appears that she did get one dose of dexamethasone on the . PLAN: Would recommend continuing antibiotic coverage for the next 48 hours. Repeat CBC at that time. We will see if her ileus resolves. Also, check lipase. Continue activity and pulmonary toilet. <ELECTRONICALLY SIGNED> By: Andrew Ervin MD 03/28/17 0923 1225 2149 Andrew Ervin MD /nt
--- NOTE | ~2017-03-11 | HC ---
[facility] [place] [place] [address] CONSULTATION Name: EULALIA CHENEY Basim Room #: 210-P ADM IN M.R.#: [id number] Admission: 03/12/17 Attend Phys: Joel Moreno MD Discharge: Date of : 42 Report #: [id number] THIS REPORT FOR: //name// CC: Geovanny Restrepo MD PHYSICIAN REQUESTING CONSULT: Srinivasa White MD HISTORY OF PRESENT ILLNESS: The patient is a 76-year-old female who I have met before. I took care of her with his lung cancer about 4 years ago. The patient was admitted to the hospital back in about 03/12 for abdominal pain and underwent a colonoscopy by Dr. Tobin Restrepo with an EGD with biopsy and dilatation and colonoscopy with biopsy snare and tattoos. At that time, he was worried about a malignant colonic stricture. Dr. Srinivasa White took the patient to the surgery on 03/16/2017, and at that time a large intestine, transverse colon tumor was removed during a transverse colectomy. The tumor was described as an invasive moderately-differentiated colonic adenocarcinoma invading to the muscularis propria and to subserosa. Pathologically, this was low grade/well differentiated. Tumor size was 2.6 cm. There was one tumor deposit and also 2 of 17 lymph nodes involved. Note that the pathologic stage was bH2xY9f, which would make this is a stage 3 colon cancer. Note that the mismatch repair genes were intact. Note also the patient had a CAT scan of abdomen and pelvis prior to surgery that was unremarkable. REVIEW OF SYSTEMS: The patient is interviewed in room 210 of the CCU. At this time, she does not have any significant headache. Does still have a bit of a sore throat from the surgery. Mild queasiness and anorexia typical postop. Pain is fairly well managed. Abdomen is still slightly tender. Extremities are without clubbing or cyanosis. PAST MEDICAL HISTORY: Notable for the diabetes mellitus, hypertension, hyperlipidemia and gout. She also has a history of bilateral tubal ligation, sinus surgery and carpal tunnel surgery. MEDICATIONS: At this time in the hospital currently include IV fluid, morphine sulfate p.r.n., pantoprazole 40 mg daily, Lovenox 30 mg daily subcutaneously, ciprofloxacin b.i.d., promethazine IV p.r.n., electrolyte replacements with potassium and magnesium, Zofran p.r.n., and metoclopramide 5 mg q. 6 p.r.n. IV. PHYSICAL EXAMINATION: GENERAL: The patient appears her stated age. VITAL SIGNS: Height is 5 feet 4 inches, which is 162.6 cm. Weight is 221 pounds, which is 100.5 kg. Blood pressure is currently 154/71, O2 sat of 97, respirations 18, pulse 80 and temperature afebrile at 98.1. [address] [address] CONSULTATION Name: SHRAVANEULALIA Room #: 210-P [facility] IN M.R.#: [id number] Admission: 03/12/17 Attend Phys: Joel Moreno MD Discharge: Date of : 42 Report #: [id number] MOOD: She is pleasant, slightly reserved and tired. NEUROLOGIC: Face is symmetrical. Moving all extremities. LUNGS: Clear anteriorly with symmetric, unlabored expansion. HEART: Appears regular rate. LYMPHATICS: No enlarged lymph nodes in the cervical, supraclavicular or axillary region. ABDOMEN: Obese and postop, not fully examined due to postop nature. EXTREMITIES: Without clubbing or cyanosis. LABORATORY DATA: Recent lab includes BUN of 5 and creatinine of 0.6. AST is 17. Total bili 0.4. Calcium 7.9. Alk phos 59. ALT 14. Albumin recently 1.9. Coags had been normal several days ago. WBC 10.9. Hemoglobin 9.8, note on admission it had been 13.5 on March 01. MCV is 82.6. Platelets are 247. Differential nonacute. CEA preop on March 16 was 1.5. Imaging done this admit significant for a CAT scan on March 11 of abdomen and pelvis without contrast showing ascending and transverse colon distended and fluid filled with adjacent inflammation and wall thickening consistent with colitis, hyperdense right upper pole kidney mass indeterminate, small right-sided pericardial cyst. Extended degenerative changes of lumbar spine. Calcified fibroid in uterine fundus. Chest x-ray on the portable showed hypoinflation. No acute changes. DISCUSSION: Discussed with patient and her son that at the time of surgery she was found to have 2 lymph nodes and the tumor deposit consistent with the stage 3 colon cancer. I talked in general about the risk of cancer recurrence and the fact that chemotherapy can help decrease it and increase survivability, also that some people at her age and health would choose not to take this. I have suggested that we continue ongoing discussion. If we did consider chemotherapy, it would use to be given in 4-8 weeks from postop day. ASSESSMENT AND PLAN: 1. Stage 3, 2-node positive and one tumor deposit positive colon cancer with mismatch repair, stable protein. The patient has a risk recurrence of between 20% and 50%, benefit of adjuvant chemotherapy with agents such as 5-FU, leucovorin probably in the range of 12%. Could consider FOLFOX with oxaliplatin, but additional toxicity especially with neuropathy may not be warranted. We will continue ongoing discussion. We will also need ongoing colonoscopies. Last was done 10 years ago. 2. Diabetes. Continue Accu-Cheks and agent medications as needed. 3. Hypertension. Meds per others. 4. Gout by history. Meds per others. 5. Lipids. Meds per others. [facility] [address] [address] CONSULTATION Name: SHRAVANEULALIA Stallworth Room #: 210-P [facility] IN [facility].#: [id number] Admission: 03/12/17 Attend Phys: Joel Moreno MD Discharge: Date of : 42 Report #: [id number] 6. Postop. Continuous physical therapy/occupational therapy efforts to get patient stronger out of the hospital. We will follow with you. <ELECTRONICALLY SIGNED> By: Deonte Soto MD 03/23/17 0844 0750 0914 Deonte Soto MD /nt
--- NOTE | ~2017-03-11 | EKG ---
[address] [place] [address] ELECTROCARDIOGRAM REPORT Name: EULALIA CHENEY Room #: 210-P ADM IN M.R.#: [id number] Admission: 03/12/17 Attend Phys: Joel Moreno MD Discharge: Date of : 42 Report #: [id number] THIS REPORT FOR: //name// [facility] ED Test Date: 2017-03-11 Test Time: 22:42:00 Pat Name: EULALIA CHENEY Department: Room: 210 Gender: F Law Firm Consultant: LETY : 1940 Requested By: Kulwant Dash Order Number: [id number] MD: Bertram Saxena Measurements Intervals [place] Rate: 73 P: 71 NH: 140 QRS: -38 QRSD: 94 T: 32 QT: 396 QTc: 437 Interpretive Statements Sinus rhythm Abnormal R-wave progression, early transition LVH by voltage Inferior infarct, old Compared to ECG 11/13/2015 18:59:18 Left ventricular hypertrophy now present T-wave abnormality no longer present Electronically Signed On 03-12-2017 11:23:10 CIGAR HEAD PERFORATOR by Bertram Saxena [email or web address] <ELECTRONICALLY SIGNED> By: Bertram Saxena MD 03/12/17 1123 224 41 Bertram Saxena MD /VLADIMIR
[~2017-03-11 20:54] MED LIST: ALLOPURINOL 10100 M1 PO; AMLODIPINE BESY10 MG PO; AVAPRO 150 MG150 M1 PO; AVAPRO300 MG PO; CARDIZEM; DIOVAN; DUTOPROL 50-121 EACH PO; GLUCOTROL; HYDROCHLOROTH12.5 M1 PO; HYDROCODONE-AP1 EAC6 PO; INDOMETHACIN 2525 MG PO; K-DUR 20 MEQ T20 MEQ PO; KLOR-CON 1010 MEQ PO; LOPRESSOR HCT1 EAC1 PO; LOPRESSOR25 PO; LYRICA; MAG-OXIDE400 MG PO; METFORMIN HCL500 MG PO; METOPROLOL TART25 MG PO; NORCO 5-325 TA1 EACH PO; SIMVASTATIN10 MG PO; TRIAMCINOLONE 080 G3 TOP; VITAMIN D1000 UNIT PO
[2017-03-11 21:01] VITALS: BP 160/88
[2017-03-11 22:24] LABS: ABSOLUTE NEUTROPHILS 8.5 thou/uL (1.4-8.2); BASOPHILS 0.6 % (0.0-2.0); EOSINOPHILS 1.4 % (0.0-3.0); HEMATOCRIT 41.1 % (37.0-47.0); HEMOGLOBIN 13.5 gm/dL (12.0-15.0); LYMPHOCYTES 18.5 % (24.0-44.0); MCH 26.8 pg (26.0-34.0); MCHC 32.9 g/dL (28.0-37.0); MCV 81.4 fL (80.0-100.0); MONOCYTES 5.8 % (1.0-8.0); PLATELET COUNT 203 thou/uL (150-400); POLYS 73.7 % (36.0-66.0); RBC 5.04 mil/uL (4.20-5.00); RDW 13.7 % (10.5-14.5); WBC 11.6 thou/uL (4.0-11.0)
[2017-03-11 22:31] LABS: CALCIUM 10.1 mg/dL (8.5-10.1)
[2017-03-11 22:32] LABS: POTASSIUM 2.7 mmol/L (3.5-5.1)
[2017-03-11 22:37] LABS: ALBUMIN 3.8 g/dL (3.4-5.0); TOTAL BILIRUBIN 0.4 mg/dL (<0.1-1.0); TOTAL PROTEIN 7.3 g/dL (6.4-8.2)
[2017-03-12 01:04] LABS: URINE BILIRUBIN NEGATIVE (Negative); URINE BLOOD TRACE (Negative); URINE CLARITY SL CLOUDY; URINE COLOR YELLOW; URINE GLUCOSE-RANDOM* NEGATIVE (Negative); URINE KETONES NEGATIVE (Negative); URINE LEUKOCYTES 2+ (Negative); URINE NITRITE NEGATIVE (Negative); URINE PROTEIN (DIPSTICK) NEGATIVE (Negative); URINE UROBILINOGEN 0.2 E.U./dl (0.2-1.0)
[2017-03-12 01:13] LABS: CASTS None Seen /LPF (None Seen); CRYSTALS None Seen /LPF (None Seen); SQUAMOUS >10 Many /LPF (0-3); URINE RBC 0-2 Rare /HPF (0-2); URINE WBC 6-15 Few /HPF (0-5)
[2017-03-12 02:19] VITALS: BP 143/76
[2017-03-12 02:38] VITALS: BP 135/66
[2017-03-12] MEDS ORDERED: ASPIR-LOW81 MG PO (03:43)
[2017-03-12] MEDS ORDERED: HYDROCHLOROTH12.5 M1 PO (03:49)
[2017-03-12 07:05] VITALS: BP 97/51
[2017-03-12 11:20] VITALS: BP 144/72
[2017-03-12 15:35] VITALS: BP 135/65
[2017-03-12 19:41] VITALS: BP 149/81
[2017-03-13 04:18] LABS: CALCIUM 8.8 mg/dL (8.5-10.1); CREATININE 0.9 mg/dL (0.6-1.0); POTASSIUM 3.4 mmol/L (3.5-5.1)
[2017-03-13 04:47] VITALS: BP 124/56
[2017-03-13 07:00] VITALS: BP 130/62
[2017-03-13 11:22] LABS: HEMATOCRIT 38.8 % (37.0-47.0); HEMOGLOBIN 12.7 gm/dL (12.0-15.0); MCH 27.1 pg (26.0-34.0); MCHC 32.8 g/dL (28.0-37.0); MCV 82.6 fL (80.0-100.0); RBC 4.69 mil/uL (4.20-5.00); RDW 14.1 % (10.5-14.5)
[2017-03-13 11:30] LABS: CALCIUM 9.4 mg/dL (8.5-10.1); CREATININE 0.9 mg/dL (0.6-1.0); POTASSIUM 3.4 mmol/L (3.5-5.1)
[2017-03-13 11:35] VITALS: BP 147/77
[2017-03-13 11:36] LABS: ALBUMIN 3.1 g/dL (3.4-5.0); TOTAL BILIRUBIN 0.3 mg/dL (<0.1-1.0); TOTAL PROTEIN 6.4 g/dL (6.4-8.2)
[2017-03-13 11:42] LABS: PROTIME 10.6 Seconds (9.3-11.4)
[2017-03-13 14:58] VITALS: BP 171/81
[2017-03-13 20:00] VITALS: BP 155/73
[2017-03-14 04:30] VITALS: BP 123/56
[2017-03-14 07:15] VITALS: BP 129/56
[2017-03-14 12:00] VITALS: BP 113/83
[2017-03-14 15:55] VITALS: BP 155/7
[2017-03-14 20:06] VITALS: BP 157/76
[2017-03-15 03:25] VITALS: BP 139/77
[2017-03-15 07:15] VITALS: BP 142/68
[2017-03-15 11:40] VITALS: BP 153/73
[2017-03-15 15:20] VITALS: BP 111/51
[2017-03-15 19:55] VITALS: BP 151/84
[2017-03-16 03:16] VITALS: BP 123/71
[2017-03-16 04:13] LABS: ABSOLUTE NEUTROPHILS 14.9 thou/uL (1.4-8.2); BASOPHILS 0.1 % (0.0-2.0); EOSINOPHILS 0.2 % (0.0-3.0); HEMATOCRIT 42.9 % (37.0-47.0); HEMOGLOBIN 13.8 gm/dL (12.0-15.0); LYMPHOCYTES 6.8 % (24.0-44.0); MCH 26.8 pg (26.0-34.0); MCHC 32.2 g/dL (28.0-37.0); MCV 83.4 fL (80.0-100.0); MONOCYTES 3.3 % (1.0-8.0); PLATELET COUNT 234 thou/uL (150-400); POLYS 89.6 % (36.0-66.0); RBC 5.14 mil/uL (4.20-5.00); RDW 14.1 % (10.5-14.5); WBC 16.6 thou/uL (4.0-11.0)
[2017-03-16 04:31] LABS: ALBUMIN 2.7 g/dL (3.4-5.0); CALCIUM 8.7 mg/dL (8.5-10.1); CREATININE 0.9 mg/dL (0.6-1.0); POTASSIUM 3.3 mmol/L (3.5-5.1); TOTAL BILIRUBIN 0.4 mg/dL (<0.1-1.0); TOTAL PROTEIN 5.7 g/dL (6.4-8.2)
[2017-03-16 07:00] VITALS: BP 155/99
[2017-03-16 07:03] LABS: ANISOCYTOSIS 1+; LARGE PLATELETS OCCASIONAL; POLYCHROMASIA OCCASIONAL
[2017-03-16 16:01] VITALS: BP 115/55
[2017-03-16 20:13] VITALS: BP 95/49
[2017-03-16 20:30] VITALS: BP 78/49
[2017-03-16 20:50] VITALS: BP 86/46
[2017-03-17] VITALS (9 sets, daily range): BP systolic 88–145; BP diastolic 50–79
[2017-03-17 02:07] LABS: ABSOLUTE NEUTROPHILS 13.5 thou/uL (1.4-8.2); BASOPHILS 0.1 % (0.0-2.0); LYMPHOCYTES 6.4 % (24.0-44.0); MCH 27.3 pg (26.0-34.0); MCHC 32.4 g/dL (28.0-37.0); MCV 84.1 fL (80.0-100.0); MONOCYTES 6.3 % (1.0-8.0); PLATELET COUNT 189 thou/uL (150-400); POLYS 87.2 % (36.0-66.0); RBC 4.29 mil/uL (4.20-5.00); RDW 14.6 % (10.5-14.5); WBC 16.2 thou/uL (4.0-11.0)
[2017-03-17 02:13] LABS: HEMOGLOBIN 11.7 gm/dL (12.0-15.0)
[2017-03-17 02:14] LABS: CALCIUM 7.9 mg/dL (8.5-10.1); POTASSIUM 3.8 mmol/L (3.5-5.1)
[2017-03-17 02:16] LABS: CREATININE 2.1 mg/dL (0.6-1.0)
[2017-03-17 07:19] LABS: CALCIUM 7.8 mg/dL (8.5-10.1); CREATININE 2.2 mg/dL (0.6-1.0); POTASSIUM 3.8 mmol/L (3.5-5.1)
[2017-03-17 16:13] LABS: URINE BILIRUBIN NEGATIVE (Negative); URINE BLOOD 1+ (Negative); URINE CLARITY CLEAR; URINE COLOR YELLOW; URINE GLUCOSE-RANDOM* NEGATIVE (Negative); URINE KETONES NEGATIVE (Negative); URINE LEUKOCYTES TRACE (Negative); URINE NITRITE NEGATIVE (Negative); URINE PROTEIN (DIPSTICK) TRACE (Negative); URINE SPECIFIC GRAVITY >= 1.030 (1.005-1.035); URINE UROBILINOGEN 0.2 E.U./dl (0.2-1.0)
[2017-03-17 16:24] LABS: SQUAMOUS 0-3 Few /LPF (0-3)
[2017-03-17 16:25] LABS: CASTS None Seen /LPF (None Seen); CRYSTALS None Seen /LPF (None Seen); URINE RBC 3-10 Few /HPF (0-2); URINE WBC 6-15 Few /HPF (0-5)
[2017-03-17 16:28] LABS: POTASSIUM 3.5 mmol/L (3.5-5.1)
[2017-03-18 04:01] LABS: ABSOLUTE NEUTROPHILS 11.2 thou/uL (1.4-8.2); BASOPHILS 0.2 % (0.0-2.0); EOSINOPHILS 0.5 % (0.0-3.0); LYMPHOCYTES 6.2 % (24.0-44.0); MCH 27.1 pg (26.0-34.0); MCHC 32.4 g/dL (28.0-37.0); MCV 83.7 fL (80.0-100.0); MONOCYTES 6.7 % (1.0-8.0); PLATELET COUNT 157 thou/uL (150-400); POLYS 86.4 % (36.0-66.0); RDW 14.3 % (10.5-14.5); WBC 12.9 thou/uL (4.0-11.0)
[2017-03-18 04:13] LABS: CALCIUM 7.8 mg/dL (8.5-10.1); CREATININE 1.5 mg/dL (0.6-1.0); POTASSIUM 3.3 mmol/L (3.5-5.1)
[2017-03-18 04:30] VITALS: BP 106/53
[2017-03-18 08:29] VITALS: BP 134/66
[2017-03-18 11:56] VITALS: BP 109/43
[2017-03-18 15:54] VITALS: BP 109/54
[2017-03-18 21:12] VITALS: BP 110/53
[2017-03-19 04:35] VITALS: BP 118/51
[2017-03-19 06:19] LABS: ABSOLUTE NEUTROPHILS 10.4 thou/uL (1.4-8.2); BASOPHILS 0.4 % (0.0-2.0); EOSINOPHILS 2.6 % (0.0-3.0); HEMATOCRIT 28.8 % (37.0-47.0); HEMOGLOBIN 9.4 gm/dL (12.0-15.0); LYMPHOCYTES 6.1 % (24.0-44.0); MCH 27.2 pg (26.0-34.0); MCHC 32.8 g/dL (28.0-37.0); MCV 83.1 fL (80.0-100.0); MONOCYTES 5.6 % (1.0-8.0); PLATELET COUNT 181 thou/uL (150-400); POLYS 85.3 % (36.0-66.0); RBC 3.47 mil/uL (4.20-5.00); RDW 14.6 % (10.5-14.5); WBC 12.2 thou/uL (4.0-11.0)
[2017-03-19 06:36] LABS: ALBUMIN 1.9 g/dL (3.4-5.0); CALCIUM 8.4 mg/dL (8.5-10.1); CREATININE 0.9 mg/dL (0.6-1.0); PHOSPHORUS 1.6 mg/dL (2.5-4.9); POTASSIUM 3.3 mmol/L (3.5-5.1)
[2017-03-19 08:12] VITALS: BP 122/60
[2017-03-19 11:44] VITALS: BP 143/69
[2017-03-19 20:22] VITALS: BP 150/77
[2017-03-20 04:07] LABS: ABSOLUTE NEUTROPHILS 8.8 thou/uL (1.4-8.2); BASOPHILS 0.6 % (0.0-2.0); EOSINOPHILS 4.8 % (0.0-3.0); HEMATOCRIT 29.8 % (37.0-47.0); HEMOGLOBIN 9.8 gm/dL (12.0-15.0); LYMPHOCYTES 9.9 % (24.0-44.0); MCH 27.2 pg (26.0-34.0); MCHC 32.9 g/dL (28.0-37.0); MCV 82.8 fL (80.0-100.0); MONOCYTES 7.3 % (1.0-8.0); PLATELET COUNT 231 thou/uL (150-400); POLYS 77.4 % (36.0-66.0); RDW 14.3 % (10.5-14.5); WBC 11.4 thou/uL (4.0-11.0)
[2017-03-20 04:19] LABS: ALBUMIN 1.9 g/dL (3.4-5.0); CALCIUM 8.4 mg/dL (8.5-10.1); CREATININE 0.8 mg/dL (0.6-1.0); PHOSPHORUS 1.8 mg/dL (2.5-4.9)
[2017-03-20 04:28] LABS: POTASSIUM 2.8 mmol/L (3.5-5.1)
[2017-03-20 04:44] VITALS: BP 129/59
[2017-03-20 07:48] VITALS: BP 140/65
[2017-03-20 11:53] VITALS: BP 146/70
[2017-03-20 16:52] LABS: CALCIUM 8.3 mg/dL (8.5-10.1); CREATININE 0.7 mg/dL (0.6-1.0); MAGNESIUM 1.4 mg/dL (1.8-2.4)
[2017-03-20 17:31] VITALS: BP 166/75
[2017-03-20 19:30] VITALS: BP 154/76
[2017-03-21 03:16] LABS: ABSOLUTE NEUTROPHILS 8.4 thou/uL (1.4-8.2); BASOPHILS 0.3 % (0.0-2.0); EOSINOPHILS 2.4 % (0.0-3.0); HEMATOCRIT 29.9 % (37.0-47.0); HEMOGLOBIN 9.8 gm/dL (12.0-15.0); LYMPHOCYTES 9.5 % (24.0-44.0); MCHC 32.7 g/dL (28.0-37.0); MCV 82.6 fL (80.0-100.0); MONOCYTES 10.5 % (1.0-8.0); PLATELET COUNT 247 thou/uL (150-400); POLYS 77.3 % (36.0-66.0); RBC 3.62 mil/uL (4.20-5.00); RDW 13.9 % (10.5-14.5); WBC 10.9 thou/uL (4.0-11.0)
[2017-03-21 03:21] LABS: ALBUMIN 1.9 g/dL (3.4-5.0); CALCIUM 7.9 mg/dL (8.5-10.1); CREATININE 0.7 mg/dL (0.6-1.0); MAGNESIUM 1.6 mg/dL (1.8-2.4); PHOSPHORUS 1.9 mg/dL (2.5-4.9)
[2017-03-21 04:45] VITALS: BP 151/71
[2017-03-21 08:00] VITALS: BP 151/94
[2017-03-21 12:00] VITALS: BP 163/82
[2017-03-21 16:00] VITALS: BP 157/76
[2017-03-21 20:04] VITALS: BP 183/90
[2017-03-22 04:22] VITALS: BP 154/71
[2017-03-22 06:03] LABS: ALBUMIN 1.9 g/dL (3.4-5.0); CALCIUM 7.9 mg/dL (8.5-10.1); CREATININE 0.6 mg/dL (0.6-1.0); MAGNESIUM 1.9 mg/dL (1.8-2.4); PHOSPHORUS 2.4 mg/dL (2.5-4.9); POTASSIUM 3.1 mmol/L (3.5-5.1)
[2017-03-22 08:35] VITALS: BP 179/86
[2017-03-22 15:57] VITALS: BP 161/81
[2017-03-22 20:02] VITALS: BP 160/79
[2017-03-22 20:05] VITALS: BP 160/79
[2017-03-23 03:38] VITALS: BP 167/88
[2017-03-23 05:30] LABS: ALBUMIN 1.9 g/dL (3.4-5.0); CALCIUM 8.4 mg/dL (8.5-10.1); CREATININE 0.6 mg/dL (0.6-1.0); PHOSPHORUS 2.2 mg/dL (2.5-4.9)
[2017-03-23 08:09] VITALS: BP 180/85
[2017-03-23 11:55] VITALS: BP 163/83
[2017-03-23 15:51] VITALS: BP 176/90
[2017-03-23 20:44] VITALS: BP 182/98
[2017-03-24] VITALS: BP 152/91
[2017-03-24 03:08] LABS: HEMATOCRIT 35.8 % (37.0-47.0); HEMOGLOBIN 11.7 gm/dL (12.0-15.0); MCH 26.5 pg (26.0-34.0); MCHC 32.6 g/dL (28.0-37.0); MCV 81.3 fL (80.0-100.0); RBC 4.4 mil/uL (4.20-5.00); RDW 14.3 % (10.5-14.5); WBC 15.4 thou/uL (4.0-11.0)
[2017-03-24 03:13] LABS: CALCIUM 8.3 mg/dL (8.5-10.1); CREATININE 0.8 mg/dL (0.6-1.0); POTASSIUM 3.5 mmol/L (3.5-5.1)
[2017-03-24 04:45] VITALS: BP 158/82
[2017-03-24 07:10] VITALS: BP 149/72
[2017-03-24 11:20] VITALS: BP 115/88
[2017-03-24 15:30] VITALS: BP 143/78
[2017-03-24 16:56] LABS: HEMATOCRIT 25.6 % (37.0-47.0); MCHC 32.8 g/dL (28.0-37.0); MCV 82.2 fL (80.0-100.0); RBC 3.11 mil/uL (4.20-5.00); RDW 14.6 % (10.5-14.5); WBC 11.2 thou/uL (4.0-11.0)
[2017-03-24 16:57] LABS: HEMOGLOBIN 8.4 gm/dL (12.0-15.0)
[2017-03-24 17:06] LABS: URINE BLOOD 2+ (Negative); URINE CLARITY CLEAR; URINE COLOR BROWN; URINE GLUCOSE-RANDOM* NEGATIVE (Negative); URINE KETONES TRACE (Negative); URINE LEUKOCYTES-REFLEX NEGATIVE (Negative); URINE PROTEIN (DIPSTICK) TRACE (Negative); URINE SPECIFIC GRAVITY >= 1.030 (1.005-1.035); URINE UROBILINOGEN 0.2 E.U./dl (0.2-1.0)
[2017-03-24 17:12] LABS: ICTOTEST (BILI CONFIRMATORY) Negative (Negative); URINE BILIRUBIN NEGATIVE (Negative); URINE NITRITE-REFLEX POSITIVE (Negative)
[2017-03-24 17:23] LABS: CASTS None Seen /LPF (None Seen); CRYSTALS None Seen /LPF (None Seen); SQUAMOUS 0-3 Few /LPF (0-3); URINE WBC-REFLEX 6-15 Few /HPF (0-5); YEAST-REFLEX Present (None Seen)
[2017-03-24 17:24] LABS: BACTERIA-REFLEX 1-9 Few /HPF (None Seen); URINE RBC 3-10 Few /HPF (0-2)
[2017-03-24 20:30] VITALS: BP 166/76
[2017-03-25 04:45] VITALS: BP 153/71
[2017-03-25 05:20] LABS: CALCIUM 8.5 mg/dL (8.5-10.1); CREATININE 0.8 mg/dL (0.6-1.0); POTASSIUM 3.4 mmol/L (3.5-5.1)
[2017-03-25 07:10] VITALS: BP 151/74
[2017-03-25 10:38] LABS: HEMATOCRIT 32.8 % (37.0-47.0); MCH 26.9 pg (26.0-34.0); MCHC 33.1 g/dL (28.0-37.0); MCV 81.2 fL (80.0-100.0); RBC 4.03 mil/uL (4.20-5.00); RDW 14.3 % (10.5-14.5); WBC 15.1 thou/uL (4.0-11.0)
[2017-03-25 10:44] LABS: HEMOGLOBIN 10.9 gm/dL (12.0-15.0)
[2017-03-25 11:25] VITALS: BP 142/82
[2017-03-25 16:05] VITALS: BP 145/67
[2017-03-25 19:42] VITALS: BP 139/65
[2017-03-26 04:03] VITALS: BP 128/68
[2017-03-26 04:50] LABS: HEMATOCRIT 28.2 % (37.0-47.0); HEMOGLOBIN 9.4 gm/dL (12.0-15.0); MCHC 33.3 g/dL (28.0-37.0); RBC 3.48 mil/uL (4.20-5.00); RDW 14.3 % (10.5-14.5); WBC 11.9 thou/uL (4.0-11.0)
[2017-03-26 05:04] LABS: ALBUMIN 1.9 g/dL (3.4-5.0); CALCIUM 8.1 mg/dL (8.5-10.1); CREATININE 0.8 mg/dL (0.6-1.0); POTASSIUM 3.2 mmol/L (3.5-5.1); TOTAL BILIRUBIN 0.4 mg/dL (<0.1-1.0); TOTAL PROTEIN 4.7 g/dL (6.4-8.2)
[2017-03-26 07:00] VITALS: BP 132/71
[2017-03-26 11:30] VITALS: BP 151/68
[2017-03-26 15:45] VITALS: BP 148/65
[2017-03-26 20:08] VITALS: BP 133/67
[2017-03-27 05:10] VITALS: BP 145/78
[2017-03-27 07:45] VITALS: BP 124/48
[2017-03-27 12:05] VITALS: BP 146/60
[2017-03-27 16:55] VITALS: BP 143/47
[2017-03-27 20:48] VITALS: BP 150/75
[2017-03-28 05:18] VITALS: BP 145/58
[2017-03-28 07:33] LABS: MAGNESIUM 1.3 mg/dL (1.8-2.4); POTASSIUM 3.2 mmol/L (3.5-5.1)
[2017-03-28 07:45] VITALS: BP 126/59
[2017-03-28 11:45] VITALS: BP 120/58
[2017-03-28 15:25] VITALS: BP 127/61
[2017-03-28 16:59] LABS: ABSOLUTE NEUTROPHILS 9.3 thou/uL (1.4-8.2); BASOPHILS 0.7 % (0.0-2.0); HEMATOCRIT 29.7 % (37.0-47.0); HEMOGLOBIN 9.8 gm/dL (12.0-15.0); LYMPHOCYTES 12.2 % (24.0-44.0); MCH 27.1 pg (26.0-34.0); MCHC 33.1 g/dL (28.0-37.0); MONOCYTES 7.4 % (1.0-8.0); PLATELET COUNT 303 thou/uL (150-400); POLYS 76.7 % (36.0-66.0); RBC 3.63 mil/uL (4.20-5.00); RDW 14.8 % (10.5-14.5); WBC 12.2 thou/uL (4.0-11.0)
[2017-03-28 19:48] VITALS: BP 150/79
[2017-03-29 04:11] VITALS: BP 144/73
[2017-03-29 06:13] LABS: HEMATOCRIT 28.3 % (37.0-47.0); HEMOGLOBIN 9.2 gm/dL (12.0-15.0); MCH 26.8 pg (26.0-34.0); MCHC 32.7 g/dL (28.0-37.0); RBC 3.45 mil/uL (4.20-5.00); RDW 14.5 % (10.5-14.5); WBC 12.2 thou/uL (4.0-11.0)
[2017-03-29 06:22] LABS: CALCIUM 8.4 mg/dL (8.5-10.1); CREATININE 0.8 mg/dL (0.6-1.0); POTASSIUM 3.4 mmol/L (3.5-5.1)
[2017-03-29 07:10] VITALS: BP 156/73
[2017-03-29] MEDS ORDERED: TRAMADOL 50 MG50 MG PO (10:21)
[2017-03-29] MEDS ORDERED: XARELTO15 MG PO (10:21)
[2017-03-29] MEDS ORDERED: PROTONIX 20 MG20 M1 PO (10:22)
[2017-03-29] MEDS ORDERED: LASIX 20 MG TAB20 MG PO (10:22)
[2017-03-29 12:05] VITALS: BP 145/45
== END 2017-03-29 16:45 | DRG 326 ==
LOC: ER 20:54 → 2N 03-12 00:28 → EROBS 03-12 00:28 → 2N 03-12 01:32
PROVIDERS: Hospitalist; Internal Medicine; Internal Medicine Gastroenterology; Internal Medicine Geriatric Medicine; Internal Medicine Nephrology; Physician Assistant; Specialist; Surgery
DX: C18.9 Malignant neoplasm of colon, unspecified (principal); E43 Unspecified severe protein-calorie malnutrition; K56.699 Other intestinal obstruction unspecified as to partial versus complete obstruction; N17.9 Acute kidney failure, unspecified; I82.622 Acute embolism and thrombosis of deep veins of left upper extremity; G72.81 Critical illness myopathy; K44.0 Diaphragmatic hernia with obstruction, without gangrene; K56.7 Ileus, unspecified; R19.00 Intra-abdominal and pelvic swelling, mass and lump, unspecified site; K52.9 Noninfective gastroenteritis and colitis, unspecified; E11.9 Type 2 diabetes mellitus without complications; I10 Essential (primary) hypertension; M10.9 Gout, unspecified; E87.6 Hypokalemia; K59.00 Constipation, unspecified; E78.5 Hyperlipidemia, unspecified; E86.1 Hypovolemia; M19.90 Unspecified osteoarthritis, unspecified site; D72.829 Elevated white blood cell count, unspecified; E66.09 Other obesity due to excess calories; K44.9 Diaphragmatic hernia without obstruction or gangrene; K29.70 Gastritis, unspecified, without bleeding; K57.30 Diverticulosis of large intestine without perforation or abscess without bleeding; K20.9 Esophagitis, unspecified; K62.1 Rectal polyp; K64.8 Other hemorrhoids; E83.39 Other disorders of phosphorus metabolism; E83.42 Hypomagnesemia; Z88.0 Allergy status to penicillin; Z87.891 Personal history of nicotine dependence; Z80.0 Family history of malignant neoplasm of digestive organs; Z80.42 Family history of malignant neoplasm of prostate; Z90.49 Acquired absence of other specified parts of digestive tract; Z68.35 Body mass index [BMI] 35.0-35.9, adult; Z79.82 Long term (current) use of aspirin; Z79.899 Other long term (current) drug therapy
CPT/HCPCS: 10081; 50010; 50093; 50101; 50249; 50386; 50455; 50525; 50555; 50962; 51412; 51435; 51489; 51708; 51712; 52265; 53307; 54118; 56462; 56525; 56526; 56530; 56771; 57092; 62110; 62900; 64031; 70005

== ENCOUNTER 2020-03-13 13:39 | Inpatient (IN) | payer OTHER ==
[~2020-03-13] VITALS: Ht 162.6 cm; Wt 81.2 kg
[~2020-03-13 13:39] MED LIST changes: +ASPIR-LOW81 MG PO; +LASIX 20 MG TAB20 MG PO; +PROTONIX 20 MG20 M1 PO; +TRAMADOL 50 MG50 MG PO; +XARELTO15 MG PO
[2020-03-13 13:44] VITALS: BP 119/59
[2020-03-13 14:17] LABS: ABSOLUTE NEUTROPHILS 4.2 thou/uL (1.4-8.2); BASOPHILS 0.7 % (0.0-2.0); EOSINOPHILS 2.8 % (0.0-3.0); HEMATOCRIT 38.5 % (37.0-47.0); HEMOGLOBIN 12.2 gm/dL (12.0-15.0); LYMPHOCYTES 26.2 % (24.0-44.0); MCH 26.9 pg (26.0-34.0); MCHC 31.7 g/dL (28.0-37.0); MCV 84.9 fL (80.0-100.0); MONOCYTES 5.4 % (1.0-8.0); PLATELET COUNT 207 thou/uL (150-400); POLYS 64.9 % (36.0-66.0); RBC 4.53 mil/uL (4.20-5.00); RDW 14.3 % (10.5-14.5); WBC 6.4 thou/uL (4.0-11.0)
[2020-03-13 15:01] LABS: ANION GAP 15 mmol/L (7-16); BUN 13 mg/dL (7-18); CHLORIDE 102 mmol/L (98-107); CO2 22 mmol/L (21-32); CREATININE 1.1 mg/dL (0.6-1.0); GLUCOSE 180 mg/dL (74-106); POTASSIUM 3.8 mmol/L (3.5-5.1); SODIUM 139 mmol/L (136-145)
[2020-03-13 15:21] LABS: ALBUMIN 3.9 g/dL (3.4-5.0); SGOT 19 U/L (15-37); SGPT 19 U/L (30-65); TOTAL BILIRUBIN 0.5 mg/dL (0.2-1.0); TOTAL PROTEIN 7.5 g/dL (6.4-8.2); TROPONIN-I <0.06 ng/mL (<0.06)
[2020-03-13 15:41] LABS: URINE BILIRUBIN NEGATIVE (Negative); URINE BLOOD NEGATIVE (Negative); URINE CLARITY CLEAR; URINE COLOR YELLOW; URINE GLUCOSE-RANDOM* NEGATIVE (Negative); URINE KETONES NEGATIVE (Negative); URINE LEUKOCYTES-REFLEX NEGATIVE (Negative); URINE NITRITE-REFLEX NEGATIVE (Negative); URINE PROTEIN (DIPSTICK) NEGATIVE (Negative); URINE SPECIFIC GRAVITY <= 1.005 (1.005-1.035); URINE UROBILINOGEN 0.2 E.U./dl (0.2-1.0)
[2020-03-13] MEDS ORDERED: HYDRALAZINE 10M10 MG PO (16:39)
[2020-03-13] MEDS ORDERED: HYDROCHLOROTH12.5 M1 PO (16:39)
[2020-03-13] MEDS ORDERED: NORVASC10 MG PO (16:40)
[2020-03-13] MEDS ORDERED: CARVEDILOL25 MG PO (16:41)
[2020-03-13 19:25] VITALS: BP 113/53
--- NOTE | 2020-03-13 21:11 | NUR ---
LAB WAS CALLED BY CHARGE AT 1540 TO NOTIFY THIS PT COVID SWAB BEING DELIVERED AT THIS TIME AND TO SEND OUT ON 4P RUN. LAB CONFIRMED THIS WAS FINE AND LAB INTERCEPTED SWAB IN AT 1548. LAB CALLED AT THIS TIME TO INQUIRE ABOUT STATUS OF TEST AND THEY ARE UNCERTAIN AND STATED IT WOULD BE TAKEN WITH THE MIDNIGHT RUN. PT HAS NOW BEEN ASSIGNED A RM ON 3W.
[2020-03-13 21:53] VITALS: BP 142/71
[2020-03-13 22:58] VITALS: BP 129/61
[2020-03-14 03:49] VITALS: BP 112/54
--- NOTE | 2020-03-14 04:54 | NUR ---
Pt new admit from ER yesterday for weakness, ataxia, and Arm pain. C/o arm pain , tylenol given x 1. Pt Is a covid r/o, no results received by the time of this note. Daughter updated about pt admission status, and pending covid results. verbal consent obtained for all consent forms. Assessments as documented. No c/o nausea, vomiting, diarrhea, chest pain or SOB. Pt is of MST status SR/SB on the monitor. No other concerns. Will continue to monitor and follow poc.
[2020-03-14 05:56] LABS: HEMATOCRIT 36.1 % (37.0-47.0); HEMOGLOBIN 11.6 gm/dL (12.0-15.0); MCH 27.1 pg (26.0-34.0); MCV 84.7 fL (80.0-100.0); RBC 4.27 mil/uL (4.20-5.00); RDW 14.3 % (10.5-14.5); WBC 6.1 thou/uL (4.0-11.0)
--- NOTE | 2020-03-14 06:09 | NUR ---
Okay to remove patient from Covid isolation per Marcelo Glover RN.
[2020-03-14 06:17] LABS: ANION GAP 11 mmol/L (7-16); BUN 14 mg/dL (7-18); CALCIUM 9.3 mg/dL (8.5-10.1); CHLORIDE 105 mmol/L (98-107); CHOLESTEROL 106 mg/dL (<200); CO2 26 mmol/L (21-32); GLUCOSE 113 mg/dL (74-106); HDL CHOLESTEROL 31 mg/dL (>40); LDL CHOLESTEROL 58 mg/dL (<100); POTASSIUM 3.5 mmol/L (3.5-5.1); SODIUM 142 mmol/L (136-145); TC:HDL 3.4 Ratio (Not establshd); TRIGLYCERIDE 86 mg/dL (<150); TROPONIN-I <0.06 ng/mL (<0.06); VLDL 17 mg/dL (<40)
[2020-03-14 06:23] LABS: SERUM ASSESSMENT Clear
--- NOTE | 2020-03-14 07:35 | EKG ---
[address] [address] ELECTROCARDIOGRAM REPORT Name: EULALIA CHENEY Room #: 209-P ADM IN M.R.#: [id number] Admission: 03/13/20 Attend Phys: Chong Neil MD Discharge: Date of : 42 Report #: [id number] [facility] ED Test Date: 2020-03-13 Test Time: 13:53:36 Pat Name: EULALIA CHENEY Department: Room: 209 Gender: F Respite Worker: JCTYRONE : 1940 Requested By: Carlie Tobin Order Number: [id number] MD: Dayday Crisostomo Measurements Intervals [place] Rate: 56 P: 56 NH: 168 QRS: -7 QRSD: 92 T: 66 QT: 433 QTc: 418 Interpretive Statements Sinus rhythm Compared to ECG 03/11/2017 22:42:00 Left ventricular hypertrophy no longer present Myocardial infarct finding no longer present Electronically Signed On 03-14-2020 7:35:48 MUSEUM ARCHIVIST by Dayday Crisostomo [email or web address] <ELECTRONICALLY SIGNED> By: Dayday Crisostomo MD, [facility] 03/14/20 0735 1353 1353 Dayday Crisostomo MD, FACC /EPI
[2020-03-14 07:55] VITALS: BP 104/45
--- NOTE | 2020-03-14 09:48 | 2DMMODE ---
[facility] [place] [address] 2 D/M-MODE ECHOCARDIOGRAM Name: EULALIA CHENEY Room #: 209-P ADM IN M.R.#: [id number] Admission: 03/13/20 Attend Phys: Chong Neil MD Discharge: Date of : 42 Report #: [id number] THIS REPORT FOR: cc: Joel Moreno MD, David W. MD Santiago, Patrick MD [facility] ~ APPROVED REPORT Study performed: 03/14/2020 08:55:10 EXAM: Comprehensive 2D, Doppler, and color-flow Echocardiogram Patient Location: Bedside Room #: 209 Status: routine BSA: 1.83 HR: 54 bpm BP: 104/45 mmHg Rhythm: NSR Other Information Study Quality: Adequate Indications Diabetes Dizziness and Vertigo Hypertension/HDD HLD 2D Dimensions RVDd: 35.19 mm IVSd: 11.94 (7-11mm) LVOT Diam: 19.11 (18-24mm) LVDd: 38.75 mm PWd: 12.12 (7-11mm) Ascending Ao: 31.52 (22-36mm) LVDs: 27.10 (25-40mm) Aortic Root: 29.85 mm IVC: 14.00 mm Volumes Left Atrial Volume (Systole) Single Plane 4CH: 31.75 mL Single Plane 2CH: 50.07 mL LA ESV Index: 24.00 mL/m2 Aortic Valve AoV Peak Ramón.: 1.67 m/s AO Peak Gr.: 11.22 mmHg LVOT Max P.98 mmHg [facility] [address] [address] 2 D/M-MODE ECHOCARDIOGRAM Name: EULALIA CHENEY Room #: 209-P [facility] IN M.R.#: [id number] Admission: 03/13/20 Attend Phys: Chong Neil, Discharge: Date of : 42 Report #: [id number] LVOT Max V: 1.58 m/s NÉSTOR Vmax: 2.70 cm2 Mitral Valve E/A Ratio: 0.6 MV Decel. Time: 305.39 ms MV E Max Ramón.: 0.60 m/s MV A Ramón.: 1.00 m/s MV PHT: 88.56 ms IVRT: 119.95 ms Pulmonary Valve PV Peak Ramón.: 1.13 m/s PV Peak Gr.: 5.18 mmHg Pulmonary Vein P Vein S: 0.64 m/s P Vein A: 0.25 m/s P Vein D: 0.35 m/s P Vein A Dur.: 166.1 msec P Vein S/D Ratio: 1.83 Tricuspid Valve TR Peak Ramón.: 2.74 m/s RAP Estimate: 10.00 mmHg TR Peak Gr.: 30.06 mmHg PA Pressure: 40.00 mmHg Left Ventricle The left ventricle is normal size. There is normal LV segmental wall motion. Mild concentric left ventricular hypertrophy. The left ventricular systolic function is normal. The left ventricular ejection fraction is within the normal range. LVEF is 60-65%. Mild diastolic dysfunction is present (impaired relaxation pattern). Right Ventricle The right ventricle is normal size. The right ventricular systolic function is normal. Atria The left atrium size is normal. The right atrium size is normal. Aortic Valve The aortic valve is normal in structure. No aortic regurgitation is present. There is no aortic valvular stenosis. Mitral Valve Mild mitral annular calcification. Trace mitral regurgitation. No [facility] [address] [place] [address] 2 D/M-MODE ECHOCARDIOGRAM Name: CHENEYEULALIA Room #: 209-P ADM IN .R.#: [id number] Admission: 03/13/20 Attend Phys: Chong Neil, Discharge: Date of : 42 Report #: [id number] evidence of mitral valve stenosis. Tricuspid Valve The tricuspid valve is normal in structure. Mild tricuspid regurgitation. PAP is estimated at 40 mmHg. Pulmonic Valve Pulmonic valve is not well visualized. Mild pulmonic regurgitation. Great Vessels The aortic root is normal in size. IVC is normal in size and collapses <50% with inspiration. Pericardium There is no pericardial effusion. <Conclusion> Normal left ventricular size Mild concentric hypertrophy Ejection fraction 55% Normal right ventricular size/function Normal atrial size Color-flow Doppler study was performed of the aortic/mitral/tricuspid/pulmonary valve Mild mitral annular calcification Normal aortic valve structure and function Mild tricuspid valve insufficiency Pulmonary artery systolic pressure estimated 40 mmHg No pericardial effusion <ELECTRONICALLY SIGNED> By: Dayday Crisostomo MD, FACC 03/14/20947 7 7 Dayday Crisostomo MD, FACC /INF
[2020-03-14 11:45] VITALS: BP 112/53
[2020-03-14 15:31] VITALS: BP 102/41
--- NOTE | 2020-03-14 17:42 | NUR ---
ASSUMED CARE OF PT AT SHIFT CHANGE. ASSESSMENS CHARTED. MEDS GIVEN PER APR. PT A&OX4, ON RA. NO C/O PAIN OR DISTRESS DURIN SHIFT. PLAN FOR MRI/A TOMORROW. WILL CONTINUE TO MONITOR AND FOLLOW POC.
[2020-03-14 20:00] VITALS: BP 109/51
[2020-03-14 23:53] VITALS: BP 104/53
[2020-03-15 00:06] LABS: GLYCOHEMOGLOBIN (HGB A1C) 6.1 % (4.8-5.6)
[2020-03-15 03:45] VITALS: BP 96/51
--- NOTE | 2020-03-15 05:20 | NUR ---
assumed pt care at the chnbage of shift, pt is seeping, awake dusring assessment, pt is orientedx4, sr/sb on the monitor,no c/o pain, meds given as per mark, vss, plan for mri/mra today, no acute distress noted, slept most of the night, will continue to monitor and follow poc
[2020-03-15 07:11] VITALS: BP 100/48
[2020-03-15 09:03] LABS: HEMATOCRIT 37.7 % (37.0-47.0); HEMOGLOBIN 12.3 gm/dL (12.0-15.0); MCH 27.2 pg (26.0-34.0); MCHC 32.5 g/dL (28.0-37.0); MCV 83.8 fL (80.0-100.0); RBC 4.5 mil/uL (4.20-5.00); RDW 14.4 % (10.5-14.5); WBC 5.9 thou/uL (4.0-11.0)
[2020-03-15 09:12] LABS: CALCIUM 9.3 mg/dL (8.5-10.1); MAGNESIUM 1.9 mg/dL (1.8-2.4); PHOSPHORUS 3.5 mg/dL (2.6-4.7); POTASSIUM 3.8 mmol/L (3.5-5.1)
[2020-03-15 11:12] VITALS: BP 97/45
--- NOTE | 2020-03-15 11:51 | NUR ---
FAXED REFERRAL TO [facility]. CRISPIN/DONITA WILL REVIEW AND GET BACK TO PROTECTIVE OFFICER. ASIA CRAWFORD: P [phone]; FAX [phone]; CRISPIN/DONITA [phone]
[2020-03-15] MEDS ORDERED: NEURONTIN 300M300 M2 PO (12:20)
[2020-03-15 12:33] VITALS: BP 97/45
[2020-03-15] MEDS ORDERED: MECLIZINE HCL25 M1 PO (12:50)
--- NOTE | 2020-03-15 13:18 | NUR ---
EULALIA HAD MRI, UNREMARKABLE, D/C INSTRUCTIONS GIVEN PER DR MITCHELL, BOTH PT AND DAUGHTER VERBALIZED UNDERSTANDING, BOTH PRESCRIPTIONS SENT TO [facility], PT VERBALIZED THAT SHE WILL FOLLOW UP WITH ENT AND PCP, IV AND TELE REMOVED, PT WHEELED OUT THROUGH ER FOR DTR TO DRIVE HER HOME. TOOK ALL BELONGINGS
--- NOTE | 2020-03-19 12:29 | HC ---
[facility] [place] [address] CONSULTATION Name: EULALIA CHENEY Room #: 209-P [facility] IN M.R.#: [id number] Admission: 03/13/20 Attend Phys: Chong Neil MD Discharge: 03/15/20 Date of : 42 Report #: [id number] THIS REPORT FOR: cc: Joel Moreno MD, David W. MD Khosla,Tommy Wilson MD ~ DATE OF SERVICE: 03/14/2020 HISTORY OF PRESENT ILLNESS: This is a 79-year-old female patient who was admitted after she was complaining of inability to walk, dizziness and multiple other symptoms. I had talked to Emergency Room physician and looks like when she came in, she was describing pretty significant problem with the ambulating and she has indicated that it has become worse in the last 24-48 hours. Symptoms have started about 2-3 months ago. They did a CT, which was unremarkable. The MRI is still pending. REVIEW OF SYSTEMS: Positive for hyperlipidemia, diabetes, hypertension, arthritis, colitis, restless leg syndrome. She denies any anxiety. She does not think there is any eye, cardiac, respiratory, GI, , musculoskeletal, constitutional, dermatological, hematological, psychiatric, throat, allergic symptom associated with present symptomatology. PAST MEDICAL HISTORY: Positive for diabetes. FAMILY HISTORY: Negative for early age stroke. SOCIAL HISTORY: She has a history of smoking, but not drinking alcohol excessively. PHYSICAL EXAMINATION: Indicate that she is alert, responsive, able to follow simple and complex command. Her speech, concentration, fund of knowledge and memory is at her baseline. Cranial nerve examination 2-12 looks unremarkable. She has symmetrical strength, sensation, reflexes and tone in all 4 extremities. There is no cerebellar sign. There is no meningeal sign. I could not look at the patient's fundus. There is no carotid bruit. She is morbidly obese. Blood pressure is 112/53, respirations 18, pulse is 60, temperature is 97.8. She has no respiratory difficulty, no rhonchi was noticed. LABORATORY DATA: Indicates sodium is normal. Her hemoglobin is 11.6. She has a CT and the carotid Doppler, which appear noncontributory. IMPRESSION: History of ambulation difficulty. The patient thinks she is better. We need to see how she does with physical therapy today. We also need to look at the MRI. Her magnesium is pretty low and that needs to be corrected. Further workup will depend upon how she does. Since she is complaining of so [address] [address] CONSULTATION Name: EULALIA CHENEY Room #: [address] [place] [address] IN M.R.#: [id number] Admission: 03/13/20 Attend Phys: Chong Neil MD Discharge: 03/15/20 Date of : 42 Report #: [id number] much ambulation difficulty, we will go ahead and do an MRA at the same time. All of it was discussed with the patient and I called the hospitalist and also discussed the patient with him. Thank you very much for this referral. <ELECTRONICALLY SIGNED> By: Tommy Damian MD 03/19/20 1229 1442 1601 Tommy Damian MD /nt
== END 2020-03-15 12:58 | disposition home health service (06) | DRG 149 ==
LOC: ER 13:39 → 3W 19:26 → EROBS 19:26 → 2N 19:26 → 3W 22:40 → 2N 03-14 07:07
PROVIDERS: Emergency Medicine; Nurse Practitioner Family; ADMIT Internal Medicine; ATTEND Internal Medicine
DX: H81.10 Benign paroxysmal vertigo, unspecified ear (principal); E66.01 Morbid (severe) obesity due to excess calories; I10 Essential (primary) hypertension; G25.81 Restless legs syndrome; M19.90 Unspecified osteoarthritis, unspecified site; M10.9 Gout, unspecified; R27.0 Ataxia, unspecified; E78.5 Hyperlipidemia, unspecified; G89.29 Other chronic pain; E11.40 Type 2 diabetes mellitus with diabetic neuropathy, unspecified; Z60.2 Problems related to living alone; Z20.822 Contact with and (suspected) exposure to COVID-19; Z98.49 Cataract extraction status, unspecified eye; Z79.01 Long term (current) use of anticoagulants; Z79.899 Other long term (current) drug therapy; Z88.0 Allergy status to penicillin; Z87.891 Personal history of nicotine dependence; Z68.30 Body mass index [BMI] 30.0-30.9, adult
CPT/HCPCS: 10081; 10879

== ENCOUNTER 2021-02-07 13:09 | Inpatient (IN) | payer OTHER ==
[~2021-02-07] VITALS: Ht 162.6 cm; Wt 83.3 kg
[~2021-02-07 13:09] MED LIST changes: +CARVEDILOL25 MG PO; +HYDRALAZINE 10M10 MG PO; +MECLIZINE HCL25 M1 PO; +NEURONTIN 300M300 M2 PO; +NORVASC10 MG PO
[2021-02-07 13:15] VITALS: BP 170/73
[2021-02-07 13:37] LABS: BASOPHILS 0.9 % (0.0-2.0); EOSINOPHILS 3.5 % (0.0-3.0); HEMATOCRIT 43.1 % (37.0-47.0); LYMPHOCYTES 23.7 % (24.0-44.0); MCH 27.5 pg (26.0-34.0); MCHC 32.6 g/dL (28.0-37.0); MCV 84.5 fL (80.0-100.0); PLATELET COUNT 236 thou/uL (150-400); POLYS 64.9 % (36.0-66.0); RDW 14.6 % (10.5-14.5); WBC 7.7 thou/uL (4.0-11.0)
[2021-02-07 13:46] LABS: CALCIUM 10.7 mg/dL (8.5-10.1); CREATININE 0.9 mg/dL (0.6-1.0); POTASSIUM 3.9 mmol/L (3.5-5.1)
[2021-02-07 13:48] LABS: INR 0.91
[2021-02-07 13:56] LABS: ALBUMIN 4.3 g/dL (3.4-5.0); TOTAL BILIRUBIN 0.5 mg/dL (0.2-1.0); TOTAL PROTEIN 9.1 g/dL (6.4-8.2)
--- NOTE | 2021-02-07 16:44 | NUR ---
DO NOT CALL NEUROLOGY CONSULT UNTIL 02/08 PER HOSPITALIST REQUEST.
[2021-02-07 17:26] LABS: URINE BILIRUBIN NEGATIVE (Negative); URINE BLOOD NEGATIVE (Negative); URINE CLARITY CLEAR; URINE COLOR YELLOW; URINE GLUCOSE-RANDOM* NEGATIVE (Negative); URINE KETONES NEGATIVE (Negative); URINE LEUKOCYTES-REFLEX NEGATIVE (Negative); URINE NITRITE-REFLEX NEGATIVE (Negative); URINE PROTEIN (DIPSTICK) NEGATIVE (Negative); URINE SPECIFIC GRAVITY <= 1.005 (1.005-1.035); URINE UROBILINOGEN 0.2 E.U./dl (0.2-1.0)
[2021-02-08] VITALS (8 sets, daily range): BP systolic 108–142; BP diastolic 54–81
--- NOTE | 2021-02-08 04:50 | NUR ---
ADMITTED THIS PATIENT FROM THE EMERGENCY DEPARTMENT AT 0045H.PATIENT IS ALERT AND ORIENTED X4.DENIES ANY DIZZINESS OR ANY TINGLING SENSATION ANYMORE.NO WEAKNESS NOTED.ADMISSION HISTORY AND ASSESSMENT DONE CHARTED.CALLED DIRECTOR FOUNDATION AND CONFIREMD WITH HER IF PATIENT NEEDS ANY MEDS TO BE ORDERED OR ANY REPEAT LAB WORKS TO BE DONE THIS MORNING, SHE TOLD SHE WILL BE CHECKING THE PATIENT'S CHART.ALL NEEDS ATTENDED.NEUROVASCULAR ASSESSMENT DONE.TO CONTINOUSLY MONITOR.
--- NOTE | 2021-02-08 11:01 | NUR ---
COMPLETED BEDSIDE SWALLOW. PATIENT DRANK FROM A 25ML MED CUP AND THEN SIPS OF WATER FROM WHITE SYROFORM CUP. NO COUGH NOTED. PLACE PATIENT ON REGULAR DIET.
--- NOTE | 2021-02-08 12:16 | NUR ---
NIH COMPLETED BY NEUROLOGY VIA IPAD. NIH = 0
--- NOTE | 2021-02-08 12:31 | EKG ---
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 : 1940 Requested By: Carlie Tobin Order Number: [id number] MD: Bertram Saxena Measurements Intervals [place] Rate: 57 P: 47 SC: 150 QRS: -27 QRSD: 94 T: 44 QT: 429 QTc: 418 Interpretive Statements Sinus rhythm Borderline left axis deviation Abnormal R-wave progression, early transition Compared to ECG 03/13/2020 13:53:36 No significant changes Electronically Signed On 02-08-2021 12:30:51 FIRE INVESTIGATOR by Bertram Saxena [email or web address] <ELECTRONICALLY SIGNED> By: Bertram Saxena MD 02/08/21 1230 1352 1352 Bertram Saxena MD /VLADIMIR
--- NOTE | 2021-02-08 18:19 | NUR ---
NO FALLS OR INJURIES THIS SHIFT. ALL SAFETY MEASURES IN PLACE. VSS. PATIENT NEEDS ASSISTANCE TO COMPLETYE ADLs. NIH COMPLETED THIS MORNING WITH NEUROLOGIST THROUGH THE USE OF IPAD. NIH=0 PER MD. ASPIRIN CHANGED FROM 81MG TO 325MG. BEDSIDE SWALLOW COMPLETED WITH THIS MORNING WITH PATIENT HAVING NO SWALLOWING ISSUES AND WAS PLACED ON A REGULAR DIET FOR THE DAY. US OF CAROTIDS COMPLETED AND MRI PLANNED FOR TOMORROW.
[2021-02-09] VITALS (7 sets, daily range): BP systolic 113–134; BP diastolic 57–75
--- NOTE | 2021-02-09 04:43 | NUR ---
PT AMBULATING TO BATHROOM WITH STANDBY ASSIST AND IS TOLERATING FAIR. DENIES PAIN. COMPLAINED OF STOMACH CRAMPS AND DIARRHEA. WILL CONTINUE TO MONITOR. RESTING COMFORTABLY. NO NEEDS VOICED. CALL LIGHT WITHIN REACH. FREQUENT OBSERVATION.
--- NOTE | 2021-02-09 10:27 | NUR ---
TOOK OVER CARE OF THIS PT AT 0700. PT SLEEPING DURING BEDSIDE SHIFT REPORT. PT DENIES SOA; ON ROOM AIR. VSS. ASSESSMENTS CHARTED. ECHO SCHEDULED TODAY. PT DENIES ANY PAIN. PT DENIES ANY NEEDS AT THIS TIME. FALL PRECAUTIONS IN PLACE AND CALL LIGHT WITHIN REACH. WILL CONTINUE TO MONITOR.
--- NOTE | 2021-02-09 11:24 | 2DMMODE ---
[facility] [place] [address] 2 D/M-MODE ECHOCARDIOGRAM Name: EULALIA CHENEY Room #: 216-P ADM IN M.R.#: [id number] Admission: 02/08/21 Attend Phys: Isabel Fields MD Discharge: Date of : 44 Report #: [id number] THIS REPORT FOR: cc: Joel Moreno MD, David W. MD Santiago, Patrick MD [facility] ~ ADDENDUM APPROVED REPORT Study performed: 02/09/2021 09:49:20 EXAM: Comprehensive 2D, Doppler, and color-flow Echocardiogram Patient Location: Bedside Room #: 216 Status: routine BSA: 1.88 HR: 72 bpm BP: 120/67 mmHg Rhythm: NSR Other Information Study Quality: Adequate Indications CVA. Evaluate for pericardial cyst mentioned per CT. Echo Enhancing Agent Indication: Rule out Shunt Agent(s) / Amount(s) Used: Agitated Saline 7 cc 2D Dimensions RVDd: 35.19 mm IVSd: 11.57 (7-11mm) LVOT Diam: 18.31 (18-24mm) LVDd: 35.03 mm PWd: 12.65 (7-11mm) Ascending Ao: 31.14 (22-36mm) LVDs: 23.97 (25-40mm) Left Atrium: 27.36 (27-40mm) Aortic Root: 32.22 mm Volumes Left Atrial Volume (Systole) Single Plane 4CH: 50.89 mL Single Plane 2CH: 66.42 mL LA ESV Index: 34.00 mL/m2 Aortic Valve [facility] [address] [place] [address] 2 D/M-MODE ECHOCARDIOGRAM Name: EULALIA CHENEY Room #: 216-P [facility] IN M.R.#: [id number] Admission: 02/08/21 Attend Phys: Isabel Fields MD Discharge: Date of : 44 Report #: [id number] AoV Peak Ramón.: 1.69 m/s AO Peak Gr.: 11.46 mmHg LVOT Max P.38 mmHg LVOT Max V: 1.16 m/s NÉSTOR Vmax: 1.80 cm2 Mitral Valve E/A Ratio: 0.6 MV Decel. Time: 192.76 ms MV E Max Ramón.: 0.48 m/s MV A Ramón.: 0.86 m/s MV PHT: 55.90 ms IVRT: 89.97 ms Pulmonary Valve PV Peak Ramón.: 1.06 m/s PV Peak Gr.: 4.47 mmHg Pulmonary Vein P Vein S: 0.45 m/s P Vein A: 0.33 m/s P Vein D: 0.26 m/s P Vein A Dur.: 110.7 msec P Vein S/D Ratio: 1.73 Tricuspid Valve TR Peak Ramón.: 2.69 m/s RAP Estimate: 5.00 mmHg TR Peak Gr.: 29.03 mmHg PA Pressure: 34.00 mmHg Left Ventricle The left ventricle is normal size. Mild concentric left ventricular hypertrophy. Left ventricular systolic function is normal. LVEF is 55%. Mild diastolic dysfunction is present (impaired relaxation pattern). Right Ventricle The right ventricle is normal size. The right ventricular systolic function is normal. Atria Left atrium is mildly dilated. The right atrium size is normal. No shunting noted with bubble study. Aortic Valve The aortic valve is normal in structure. No aortic regurgitation is present. There is no aortic valvular stenosis. Mitral Valve The mitral valve is normal in structure. Moderate mitral annular [facility] [address] [place] [address] 2 D/M-MODE ECHOCARDIOGRAM Name: SHRAVANEULALIA Room #: [address] [place] [address] IN ..#: [id number] Admission: 02/08/21 Attend Phys: Isabel Fields MD Discharge: Date of : 44 Report #: [id number] calcification. Trace mitral regurgitation. No evidence of mitral valve stenosis. Tricuspid Valve The tricuspid valve is normal in structure. Mild tricuspid regurgitation. Estimated PAP is 34mmHg. Pulmonic Valve The pulmonary valve is normal in structure. Mild pulmonic regurgitation. Great Vessels The aortic root is normal in size. The ascending aorta is normal in size. IVC is normal in size and collapses >50% with inspiration. Pericardium There is no pericardial effusion. <Conclusion> Normal left ventricle size with mild concentric hypertrophy Ejection fraction 55%, anterior wall not well seen Grade 1 diastolic dysfunction Normal right ventricle size/function Normal atrial size Normal aortic valve structure and function Moderate mitral annular calcification Trace mitral valve insufficiency Mild tricuspid valve insufficiency Pulmonary systolic pressure estimated at 34 mmHg No pericardial effusion Normal aortic root size No obvious ASD or VSD detected by bubble study <ELECTRONICALLY SIGNED> By: Dayday Crisostomo MD, FACC 02/09/21 1124 23 23 Dayday Crisostomo MD, FACC /INF
[2021-02-09] MEDS ORDERED: ASPIRIN EC325 M1 PO (13:23)
--- NOTE | 2021-02-09 16:48 | NUR ---
PT ADMITTED FOR BALANCE AND FACIAL [place]ING[place]. CHART REVIEWED AND DISCUSSED PLAN WITH CARE TEAM. MET WITH PT AND DAUGHTER SHEELA THIS DAY. PT ASLEEP. CM ROLE INTRODUCED. PTS MACKENZIE REPORTS PT LIVES AT HOME WITH HER AND GRANDCHILDREN. SHE DOES NOT USE A ASSISTIVE DEVICE. SHE REPORTS 2 STAIR INSIDE THE HOME AND 2 STAIRS OUTSIDE THE HOME. REPORTS NO CONCERNS OR ISSUES WITH THOSE ONCE MEDICALLY STABLE TO DISCHARGE. PT IS INDEPENDENT WITH ALL ADLS AND MOBILITY AND STILL DRIVES. SHEELA REPORTS PTS PCP IS JOHN CAMACHO. NO IDENTIFIED HOME NEEDS ON DC WHEN MEDICALLY STABLE AT THIS TIME.
--- NOTE | 2021-02-09 18:11 | NUR ---
DISCHARGE EDUCATION GIVEN TO PATIENT AND PATIENTS DAUGHTER. PT AGREEABLE TO DISCHARGE INSTRUCTIONS AND FOLLOW-UP ON MRI AN OUTPATIENT. PT AGREEABLE TO DISCHARGE PLAN. EDUCATION ON NEW MEDICATION GIVEN. DISCHARGED WITH NURSING STAFF VIA WHEELCHAIR TO PERSONAL VEHICLE.
--- NOTE | 2021-02-10 07:24 | NUR ---
ORDERS FOR EVAL AND TREAT HOWEVER Pt DISCHARGED FROM HOSPITAL PRIOR TO BEING SEEN
== END 2021-02-09 18:20 | disposition home or self-care (01) | DRG 65 ==
LOC: ER 13:09 → EROBS 02-08 00:42 → 2N 02-08 00:43
PROVIDERS: Emergency Medicine; ADMIT Internal Medicine; ATTEND Internal Medicine
DX: I63.9 Cerebral infarction, unspecified (principal); D68.69 Other thrombophilia; I10 Essential (primary) hypertension; E78.5 Hyperlipidemia, unspecified; E11.40 Type 2 diabetes mellitus with diabetic neuropathy, unspecified; R53.81 Other malaise; M10.9 Gout, unspecified; Z98.49 Cataract extraction status, unspecified eye; Z88.0 Allergy status to penicillin; Z87.891 Personal history of nicotine dependence; Z79.82 Long term (current) use of aspirin; Z79.899 Other long term (current) drug therapy; Z20.822 Contact with and (suspected) exposure to COVID-19
CPT/HCPCS: 10081